=== PATIENT | female | born 1955 | race Caucasian/White ===

== ENCOUNTER → 2016-10-14 | Outpatient (CLI) | payer BC ==
--- NOTE | 2016-10-14 14:50 | US ---
EXAMINATION TYPE: US pelvis complete transvag DATE OF EXAM: 10/14/2016 2:41 PM COMPARISON: NONE CLINICAL HISTORY: Post Menopausal Bleeding N95.0. TECHNIQUE: Transabdominal pelvic ultrasound. Date of LMP: N/A EXAM MEASUREMENTS: Uterus: 5.4 x 2.4 x 4.0 cm Endometrial Stripe: 0.2 cm Right Ovary: not identified Left Ovary: not identified 1. Uterus: Anteverted wnl 2. Endometrium: has fluid within but does not appear athickened 3. Right Ovary: not identified 4. Left Ovary: not identified. 5. Bilateral Adnexa: wnl 6. Posterior cul-de-sac: wnl patient has personal history of anal cancer. IMPRESSION: Nonspecific endometrial fluid with thickening.
== END | disposition home or self-care (01) ==
LOC: RADUSWWP 14:10
PROVIDERS: ATTEND Obstetrics & Gynecology
DX: R93.8 Abnormal findings on diagnostic imaging of other specified body structures (principal); N95.0 Postmenopausal bleeding
CPT/HCPCS: 76830; 76856

== ENCOUNTER → 2017-03-18 | Outpatient (CLI) | payer BC ==
--- NOTE | 2017-03-18 15:57 | BD ---
EXAMINATION TYPE: MG DEXA axial skeleton. DATE OF EXAM: 03/18/2017 COMPARISON: NONE CLINICAL HISTORY: disorder of bone Height: 5'5 Weight: 154 FRAX RISK QUESTIONS: Alcohol (3 or more units per day): no Family History (Parent hip fracture): no Glucocorticoids (More than 3mos): no (Ex: prednisone, prednisolone, methylprednisolone, dexamethasone, and hydrocortisone). History of Fracture in Adulthood: no Secondary Osteoporosis: 1. Type 1 Diabetes: no 2. Hyperthyroidism: no 3. Menopause before 45: no 4. Malnutrition: no 5. Chronic liver disease: no Rheumatoid Arthritis: no Current Tobacco Use: no RISK FACTORS HISTORY OF: Diet low in dairy products/other sources of calcium: Postmenopausal woman: MEDICATIONS: Additional Medications: cholesterol Additional History: rectal cancer squamous cell age 57 EXAM MEASUREMENTS: Bone mineral densitometry was performed using the [employer] System. Bone mineral density as measured about the Lumbar spine is: ----- L1-L4(G/cm2): 1.019 T Score Values are as follows: ----- L2: -1.9 ----- L3: -1.0 ----- L4: -0.6 ----- L1-L4: -1.3 Bone mineral density about the R hip (g/cm2): 0.942 Bone mineral density about the L hip (g/cm2): 0.935 T Score values are as follows: -----R Neck: -0.7 -----L Neck: -0.7 -----R Total: -0.3 -----L Total: -0.5 IMPRESSION: Osteopenia (T Score between -2.5 and -1 as noted by T score values in the low back overall. There is slightly increased risk of fracture and the patient may be considered for treatment. Re-Screen 2-5 years. NOTE: T-SCORE=SD OF THE YOUNG ADULT MEAN.
--- NOTE | 2017-03-20 06:57 | MM ---
Reason for exam: screening (asymptomatic). Last mammogram was performed 1 year and 4 months ago. History: Patient is postmenopausal, has history of colon cancer at age 57, and history of other cancer. Physical Findings: A clinical breast exam by your physician is recommended on an annual basis and results should be correlated with mammographic findings. MG 3D Screening Mammo W/Cad Bilateral CC and MLO view(s) were taken. Prior study comparison: November 28, 2015, bilateral MG 3d screening mammo w/cad. June 10, 2014, mammogram, performed at [facility]. The breast tissue is heterogeneously dense. This may lower the sensitivity of mammography. Left chest wall injection port. No significant changes when compared with prior studies. ASSESSMENT: Negative, BI-RAD 1 RECOMMENDATION: Routine screening mammogram of both breasts in 1 year.
== END | disposition home or self-care (01) ==
LOC: RADMAMWWP 12:55
PROVIDERS: ATTEND Obstetrics & Gynecology
DX: Z12.31 Encounter for screening mammogram for malignant neoplasm of breast (principal); M85.80 Other specified disorders of bone density and structure, unspecified site
CPT/HCPCS: 77080; 77063; G0202

== ENCOUNTER → 2017-09-08 | Outpatient (CLI) | payer BC ==
--- NOTE | 2017-09-08 11:14 | ECHOS ---
STRESS ECHOCARDIOGRAM DATE OF SERVICE: 09/08/2017 INDICATIONS: Family history. MEDICATIONS: BASELINE HEART RATE: 72 BASELINE BLOOD PRESSURE: 121/73 MAXIMUM HEART RATE: 152 MAXIMUM BLOOD PRESSURE: 155/59 85% MPHR: 133 100% MPHR: 157 METS: MAXIMUM STAGE REACHED: II TOTAL EXERCISE TIME: 7 minutes and 48 seconds. CLINICAL INFORMATION: Baseline EKG revealed normal sinus rhythm without significant ST-T changes. Patient walked for 7 minute 48 seconds, achieved a maximal heart rate of 152 beats per minute developed fatigue and shortness of breath, but did not have angina or arrhythmia. EKG did not reveal any ST-segment changes to indicate ischemia. By EKG criteria, this is a negative stress test with fair exercise capacity. Baseline echo images revealed normal wall motion and wall thickening of all segments. At peak exercise, there was good augmentation of left ventricular wall motion and wall thickening of all segments suggesting that there is no evidence of stress-induced ischemia on this stress echocardiogram. FINAL IMPRESSION: 1. Fair exercise capacity with a negative stress test by EKG criteria. 2. Normal stress echocardiogram. MMODL / IJN: [id number] /
== END | disposition home or self-care (01) ==
LOC: RADNMMAIN 08:53
PROVIDERS: ATTEND Family Medicine
DX: R00.2 Palpitations (principal)
CPT/HCPCS: 93017; 93350

== ENCOUNTER → 2018-04-22 | Outpatient (CLI) | payer BC ==
--- NOTE | 2018-04-23 15:04 | MM ---
Reason for exam: screening (asymptomatic). Last mammogram was performed 1 year and 1 month ago. History: Patient is postmenopausal, has history of colon cancer at age 57, and history of other cancer. Physical Findings: A clinical breast exam by your physician is recommended on an annual basis and results should be correlated with mammographic findings. MG 3D Screening Mammo W/Cad Bilateral CC and MLO view(s) were taken. Prior study comparison: March 18, 2017, bilateral MG 3d screening mammo w/cad. November 28, 2015, bilateral MG 3d screening mammo w/cad. The breast tissue is heterogeneously dense. This may lower the sensitivity of mammography. Port over left breast. No significant changes when compared with prior studies. ASSESSMENT: Benign, BI-RAD 2 RECOMMENDATION: Routine screening mammogram of both breasts in 1 year.
== END | disposition home or self-care (01) ==
LOC: RADMAMWWP 08:34
PROVIDERS: ATTEND Obstetrics & Gynecology
DX: Z12.31 Encounter for screening mammogram for malignant neoplasm of breast (principal)
CPT/HCPCS: 77063; 77067

== ENCOUNTER 2018-05-06 06:19 | Day surgery (SDC) | payer BC ==
[2018-05-05 11:53] VITALS: BMI 24.6
--- NOTE | 2018-05-05 17:46 | P.HPOB ---
History of Present Illness H&P Date: 05/05/18 Chief Complaint: Postmenopausal bleeding, endometrial thickening This is a 63-year-old female 3 para 3 who presents for dilation and curettage with hysteroscopy secondary to postmenopausal bleeding and endometrial thickening on ultrasound. Her bleeding started all of a sudden about 3 days ago with a large gush of blood. She has been bleeding fairly heavy since that time. It has slowed a little bit today. She did go to the emergency room and had a pelvic ultrasound performed that showed a uterus measuring 8.4 x 5.7 x 3.9 cm with an endometrial thickness of 2 cm. Her right ovary appeared normal and her left ovary was not well visualized. She did have a previous ultrasound in early 2016 that showed an endometrial stripe thickness of 0.2 cm. She has noticed some cramping over the last month but felt menstrual -like but was not having any bleeding until recently. Obstetrical history: . History of 3 vaginal deliveries. Gynecologic history: No history of sexual transmitted diseases. Menopause was at about age 47. She has been using occasional estrogen cream for vaginal dryness. Social history: She is . 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 Review of Systems Constitutional: Denies chills, Denies fever Eyes: denies blurred vision, denies pain Ears, nose, mouth and throat: Denies headache, Denies sore throat Cardiovascular: Denies chest pain, Denies shortness of breath Respiratory: Denies cough Gastrointestinal: Denies abdominal pain, Denies nausea, Denies vomiting Genitourinary: Reports abnormal vaginal bleeding, Reports pelvic pain Musculoskeletal: Denies myalgias Integumentary: Denies pruritus, Denies rash Neurological: Denies numbness, Denies weakness Psychiatric: Denies anxiety, Denies depression Past Medical History Past Medical History: Cancer, Hyperlipidemia Additional Past Medical History / Comment(s): IBS, HX ANAL CANCER, PEG TUBE REMAINS IN PLACE. Hx basal cell cancer on nose. History of Any Multi-Drug Resistant Organisms: None Reported Past Surgical History: Cholecystectomy Additional Past Surgical History / Comment(s): COLONOSCOPY, ANAL TUMOR REMOVED, PEG TUBE October 2009. Past Anesthesia/Blood Transfusion Reactions: No Reported Reaction Past Psychological History: No Psychological Hx Reported Smoking Status: Former smoker Past Alcohol Use History: Daily Additional Past Alcohol Use History / Comment(s): QUIT SMOKING IN HER EARLY 19' S. 1-2 GLASSES WINE DAILY. Past Drug Use History: None Reported - Past Family History Brother(s) Family Medical History: Cancer Medications and Allergies Home Medications Medication Instructions Recorded Confirmed Type Atorvastatin Calcium [Lipitor] 40 mg PO HS 05/20/17 05/05/18 History Cholecalciferol [Vitamin D3] 10,000 unit PO HS 05/04/18 05/05/18 History L.acidoph,Paracasei, B.lactis 1 cap PO DAILY 05/04/18 05/05/18 History [Probiotic] Loperamide HCl [Imodium A-D] 8 mg PO QAM 05/04/18 05/05/18 History Ubidecarenone [Co Q-10] 200 mg PO HS 05/04/18 05/05/18 History Cholestyramine (with Sugar) 2 gm PO QAM 05/05/18 05/05/18 History [Cholestyramine Packet] Cranberry/Vitamin C 8,400 mg PO DAILY 05/05/18 05/05/18 History Cyanocobalamin (Vitamin B-12) 5,000 mcg PO HS 05/05/18 05/05/18 History [Vitamin B-12] Allergies Allergy/AdvReac Type Severity Reaction Status Date / Time azithromycin Allergy Rash/Hives Verified 05/05/18 11:34 [From Zithromax Z-Karlos] sulfamethoxazole Allergy Rash/Hives Verified 05/05/18 11:34 [From Bactrim] trimethoprim [From Bactrim] Allergy Rash/Hives Verified 05/05/18 11:34 Exam Osteopathic Statement: *. No significant issues noted on an osteopathic structural exam other than those noted in the History and Physical/Consult. Intake and Output 05/05/18 05/05/18 05/05/18 06:59 14:59 22:59 Other: Weight 67.132 kg HEENT: Within normal limits Heart: Regular rate and rhythm Lungs: Clear to auscultation bilaterally Abdomen: Soft, nontender Pelvic exam: Vaginal mucosa is atrophic. Cervix is parous but very stenotic and obliterated from radiation with no clearly visible opening. Uterus is mid position mildly tender, with no adnexal masses or tenderness noted. Extremities: Negative Homans Assessment and Plan (1) Endometrial thickening on ultrasound Status: Acute Code(s): R93.89 - ABNORMAL FINDINGS ON DX IMAGING OF OTH BODY STRUCTURES SNOMED Code(s): 255712131 (2) Post-menopausal bleeding Status: Acute Code(s): N95.0 - POSTMENOPAUSAL BLEEDING SNOMED Code(s): 18942531 Plan: Proceed with dilation and curettage with hysteroscopy. I have discussed the risks, benefits, and alternative therapies for the above- mentioned procedure and for both sedation/anesthesia as well as necessary blood products administration, if indicated, as they pertain to this patient. The patient has indicated her understanding and acceptance of the risks and procedures discussed.
[~2018-05-06 06:19] MED LIST: DEXAMETHASONE SOD PHOSPHATE 10 MG/ML 1 ML VIAL IV ONE; HYDROmorphone 1 MG/ML 1 ML SYRINGE IVP PRN; LACTATED RINGERS 1,000 ML IV SCH; LIDOCAINE 1% 20 ML VIAL (10MG/ML) FOR IV START INTRADERMA PRN; MIDAZOLAM 2 MG/2 ML VIAL IV PRN; ONDANSETRON 4 MG/2 ML VIAL IVP ONE; Pre Op ABX Message 1 EACH MISC MISCELLANE ONE; fentaNYL (PF) 50 MCG/ML 2 ML AMP IV PRN
[2018-05-06] MEDS ORDERED: LIDOCAINE 1% INJ 10MG/ML (20 ML MDV) ONE (07:27)
[2018-05-06] MEDS ORDERED: KETOROLAC 30 MG/ML 1 ML VIAL ONE (07:27)
[2018-05-06] MEDS ORDERED: MIDAZOLAM 2 MG/2 ML VIAL ONE (07:27)
[2018-05-06] MEDS ORDERED: fentaNYL (PF) 50 MCG/ML 2 ML AMP ONE (07:27)
[2018-05-06] MEDS ORDERED: PROPOFOL 10 MG/ML 20 ML VIAL IV ONE (07:27)
--- NOTE | 2018-05-06 08:00 | P.OP ---
Date of Procedure: 05/06/18 Preoperative Diagnosis: Postmenopausal bleeding Endometrial thickening Postoperative Diagnosis: Same Procedure(s) Performed: Dilation and curettage with hysteroscopy Anesthesia: other (LMA general) Surgeon: Jennifer Ny Estimated Blood Loss (ml): 25 Pathology: other (Endometrial curettings) Condition: stable Disposition: same day Indications for Procedure: This is a 63-year-old female 3 para 3 who presents for dilation and curettage with hysteroscopy secondary to postmenopausal bleeding and endometrial thickening on ultrasound. Her bleeding started all of a sudden about 3 days ago with a large gush of blood. She has been bleeding fairly heavy since that time. It has slowed a little bit today. She did go to the emergency room and had a pelvic ultrasound performed that showed a uterus measuring 8.4 x 5.7 x 3.9 cm with an endometrial thickness of 2 cm. Her right ovary appeared normal and her left ovary was not well visualized. She did have a previous ultrasound in early 2017 that showed an endometrial stripe thickness of 0.2 cm. She has noticed some cramping over the last month but felt menstrual -like but was not having any bleeding until recently. Operative Findings: Uterus is retroverted and sounded to 7 cm. Cervical os is necrotic appearing and slightly adherent to the posterior vaginal wall. Dark red blood is noted to be extruding through the cervical os. A fairly large amount of necrotic appearing tissue is obtained. Description of Procedure: The patient is taken to the operating room where she is placed in the dorsal lithotomy position. She is prepped and draped in the normal sterile fashion. Bladder is drained with a catheter. Pelvic exam is performed under anesthesia. Uterus was sounded be retroverted with no adnexal masses palpated. Next a weighted speculum was placed in the patient's vagina and a [place] is used to retract the anterior wall. Next the cervical os is visualized and noted to be slightly necrotic with some dark red blood extruding. The cervix was so scarred that I could not grab the anterior lip with a single-tooth tenaculum because it would just light off. I was able to grab the posterior lip of the cervix. The uterus is sounded to 7 cm. Cervix is gently dilated with Au dilators until a hysteroscope could be passed. Hysteroscopy was performed with normal saline. Difficult visualization was noted due to the bleeding. A large amount of dyssynchronous appearing tissue was noted. Neither tubal ostia was completely visualized. Hysteroscope was removed and the cervix was gently dilated further. A medium-size sharp curet was introduced and sharp curettage was performed with a moderate to large amount of necrotic appearing tissue. The single-tooth tenaculum was then removed and the specimen is removed. Minimal bleeding was noted. A rectal exam was also performed just to make sure there was no perforation towards the rectal area and no blood was noted on the glove. All instruments are removed from the vagina. All sponge and needle counts are correct. The patient is then taken to recovery room.
[2018-05-06 08:16] VITALS: TEMP 97
[2018-05-06 08:18] VITALS: RESP 16
[2018-05-06 09:12] VITALS: BP 132/75; PULSE 70
== END 2018-05-06 09:47 | disposition home or self-care (01) ==
LOC: OR 06:19
PROVIDERS: ATTEND Obstetrics & Gynecology
DX: C54.1 Malignant neoplasm of endometrium (principal); E78.5 Hyperlipidemia, unspecified; Z85.048 Personal history of other malignant neoplasm of rectum, rectosigmoid junction, and anus; Z85.22 Personal history of malignant neoplasm of nasal cavities, middle ear, and accessory sinuses; Z87.891 Personal history of nicotine dependence; Z79.899 Other long term (current) drug therapy; Z88.1 Allergy status to other antibiotic agents; Z88.2 Allergy status to sulfonamides
CPT/HCPCS: 58558; 88305; 88342; 88341; J2250; J1100; J2405; J2001; J3010; J1885; J2704

== ENCOUNTER → 2018-06-01 | Outpatient (CLI) | payer BC ==
--- NOTE | 2018-06-02 09:58 | CT ---
EXAMINATION TYPE: CT abdomen pelvis wo/w con DATE OF EXAM: 06/01/2018 HISTORY: pre-surgical. pt states she is having hysterectomy for uterine ca. CT DLP: 835mGycm Automated Exposure Control for Dose Reduction was Utilized. CONTRAST: CT scan of the abdomen and pelvis is performed with IV Contrast, patient injected with 100 mL of Isov ue 300. COMPARISON: Pelvic ultrasound dated 05/04/[address] dated 10/29/2011 FINDINGS: LUNG BASES: Right middle lobe linear atelectasis is present. LIVER/GB: No focal hepatic lesion is seen. The portal system appears engorged. Gallbladder surgically absent. PANCREAS: No significant abnormality is seen. SPLEEN: No significant abnormality is seen. ADRENALS: No significant abnormality is seen. KIDNEYS: Kidneys enhance and excrete symmetrically. Incidental mode is made of a right extrarenal pel vis. BOWEL: Diffuse sigmoid colonic wall thickening may relate to incomplete distention or chronic colitis is no pericolonic inflammatory fat stranding changes are seen. UTERUS/ADNEXA: Uterus is diffusely heterogenous with endometrial thickening. Fluid is seen within the cervical canal. Overall there is pelvic floor relaxation. LYMPH NODES: No greater than 1cm abdominal or pelvic lymph nodes are appreciated. OSSEOUS STRUCTURES: There is mild retrolisthesis of L3 on L4. No suspicious osseous lesion is seen. OTHER: Subcentimeter fat filled umbilical hernia is present IMPRESSION: 1. No evidence of intra-abdominal or pelvic solid visceral metastasis or adenopathy. 2. Endometrial thickening with heterogeneity of the uterus and fluid-filled cervical os. 3. Diffuse sigmoid colonic wall thickening may relate to chronic colitis. No current inflammatory collin nges seen.
--- NOTE | 2018-06-02 11:47 | XR ---
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 FINDINGS: There is no focal air space opacity, pleural effusion, or pneumothorax. Port-A-Cath is pr esent in the left pectoral region, distal tip of the catheter is overlying superior vena cava. Biapic al pleural thickening is stable. Surgical clips in the upper abdomen. The cardiac silhouette size is within normal limits. The osseous structures are intact. Aorta is dense. IMPRESSION: No acute cardiopulmonary process.
== END | disposition home or self-care (01) ==
LOC: RADCTMAIN 15:47
PROVIDERS: ATTEND Obstetrics & Gynecology
DX: C54.1 Malignant neoplasm of endometrium (principal); R93.89 Abnormal findings on diagnostic imaging of other specified body structures; K63.89 Other specified diseases of intestine
CPT/HCPCS: 71046; 74178; Q9967

== ENCOUNTER 2018-06-24 17:09 | Emergency (ER) | payer BC ==
[2018-06-24 17:28] VITALS: RESP 16
[2018-06-24] MEDS ORDERED: SODIUM CHLORIDE 0.9% 1,000 ML IV STA (17:38)
[2018-06-24] MEDS ORDERED: IBUPROFEN 600 MG TAB PO STA (17:38)
[2018-06-24] MEDS ORDERED: SODIUM CHLORIDE 0.9% 500 ML 500 ML IV STA (17:38)
[2018-06-24] MEDS ORDERED: ACETAMINOPHEN TAB 500 MG TAB PO STA (17:38)
--- NOTE | 2018-06-24 17:38 | ED ---
Fever HPI - General Chief Complaint: Fever Stated Complaint: Flu Time Seen by Provider: 06/24/18 17:35 Source: patient, RN notes reviewed, old records reviewed Mode of arrival: ambulatory Limitations: no limitations - History of Present Illness Initial Comments: This is a 63-year-old female the ER for evaluation of fever not feeling well. Symptoms 2 days. Patient has no significant recent sick contacts. Was recently diagnosed urinary tract infection. Called they told she had abnormal lab values an outpatient lab visit. Patient currently is without pain. Denies significant abdominal pain. Medical history is significant for recent robotic hysterectomy and does not have significant pain there and her surgeons have been cleaned. Patient does have history of uterine CA. Patient denies cough or congestion no rash. No nausea vomiting or diarrhea MD Complaint: fever, weakness -: days(s) (2) Temperature Source: subjective, other (Patient has been feeling temperature for 2 days but not feeling well 7 days, surgery 2 weeks ago, recent treatment for UTI) Context: sick contacts, recent procedure (Hysterectomy) Associated Symptoms: chills Treatments Prior to Arrival: none - Related Data Home Medications Medication Instructions Recorded Confirmed Atorvastatin Calcium [Lipitor] 40 mg PO HS 05/20/17 06/24/18 Cholecalciferol [Vitamin D3] 10,000 unit PO HS 05/04/18 06/24/18 L.acidoph,Paracasei, B.lactis 1 cap PO DAILY 05/04/18 06/24/18 [Probiotic] Loperamide HCl [Imodium A-D] 8 mg PO QAM 05/04/18 06/24/18 Ubidecarenone [Co Q-10] 200 mg PO HS 05/04/18 06/24/18 Cholestyramine (with Sugar) 2 gm PO QAM 05/05/18 06/24/18 [Cholestyramine Packet] Cranberry/Vitamin C 8,400 mg PO DAILY 05/05/18 06/24/18 Cyanocobalamin (Vitamin B-12) 5,000 mcg PO HS 05/05/18 06/24/18 [Vitamin B-12] HYDROcodone/APAP 7.5-325MG [[place] 1 tab PO BID PRN 06/24/18 06/24/18 7.5-325] Ibuprofen [Motrin] 800 mg PO BID 06/24/18 06/24/18 Allergies Allergy/AdvReac Type Severity Reaction Status Date / Time azithromycin Allergy Rash/Hives Verified 06/24/18 18:00 [From Zithromax Z-Karlos] nitrofurantoin AdvReac Nausea & Verified 06/24/18 18:00 Vomiting sulfamethoxazole AdvReac Nausea & Verified 06/24/18 18:00 [From Bactrim] Vomiting trimethoprim [From Bactrim] AdvReac Nausea & Verified 06/24/18 18:00 Vomiting Review of Systems ROS Statement: Those systems with pertinent positive or pertinent negative responses have been documented in the HPI. ROS Other: All systems not noted in ROS Statement are negative. Past Medical History Past Medical History: Cancer, Hyperlipidemia Additional Past Medical History / Comment(s): IBS, HX ANAL CANCER, PEG TUBE REMAINS IN PLACE. Hx basal cell cancer on nose. History of Any Multi-Drug Resistant Organisms: None Reported Past Surgical History: Cholecystectomy Additional Past Surgical History / Comment(s): COLONOSCOPY, ANAL TUMOR REMOVED, PEG TUBE October 2009. Past Anesthesia/Blood Transfusion Reactions: No Reported Reaction Past Psychological History: No Psychological Hx Reported Smoking Status: Former smoker Past Alcohol Use History: Daily Past Drug Use History: None Reported - Past Family History Brother(s) Family Medical History: Cancer General Exam - General Exam Comments Initial Comments: Incisions are clean dry and intact Limitations: no limitations General appearance: alert, in no apparent distress Head exam: Present: atraumatic, normocephalic, normal inspection Eye exam: Present: normal appearance, PERRL, EOMI. Absent: scleral icterus, conjunctival injection, periorbital swelling ENT exam: Present: normal exam, mucous membranes moist Neck exam: Present: normal inspection. Absent: tenderness, meningismus, lymphadenopathy Respiratory exam: Present: normal lung sounds bilaterally. Absent: respiratory distress, wheezes, rales, rhonchi, stridor Cardiovascular Exam: Present: regular rate, normal rhythm, normal heart sounds. Absent: systolic murmur, diastolic murmur, rubs, gallop, clicks GI/Abdominal exam: Present: soft, normal bowel sounds. Absent: distended, tenderness, guarding, rebound, rigid Extremities exam: Present: normal inspection, full ROM, normal capillary refill. Absent: tenderness, pedal edema, joint swelling, calf tenderness Back exam: Present: normal inspection Neurological exam: Present: alert, oriented X3, CN II-XII intact Psychiatric exam: Present: normal affect, normal mood Skin exam: Present: warm, dry, intact, normal color. Absent: rash Course Vital Signs 06/24/18 06/24/18 06/24/18 17:26 20:42 22:25 Temperature 102.9 F H 98.4 F 98.1 F Pulse Rate 100 92 Respiratory 16 16 Rate Blood Pressure 117/73 134/74 O2 Sat by Pulse 100 99 Oximetry - Reevaluation(s) Reevaluation #1: 06/24/18 19:06 Medical record is reviewed Reevaluation #2: 06/24/18 19:06 Patient does feel better with symptom control Medical Decision Making - Medical Decision Making 63 female the ER for evaluation of fever. 2 weeks postoperative for hysterectomy, CT head and pelvis as well as further workup was otherwise negative. Patient can be discharged home - Lab Data Result diagrams: 06/24/18 18:14 06/24/18 18:14 Lab Results 06/24/18 06/24/18 06/24/18 Range/Units 18:14 18:14 18:14 WBC 17.2 H (3.8-10.6) k/uL RBC 3.44 L (3.80-5.40) m/uL Hgb 11.1 L (11.4-16.0) gm/dL Hct 34.1 (34.0-46.0) % MCV 99.0 (80.0-100.0) fL MCH 32.3 (25.0-35.0) pg MCHC 32.6 (31.0-37.0) g/dL RDW 12.1 (11.5-15.5) % Plt Count 424 (150-450) k/uL Neutrophils % 88 % Lymphocytes % 5 % Monocytes % 4 % Eosinophils % 1 % Basophils % 0 % Neutrophils # 15.1 H (1.3-7.7) k/uL Lymphocytes # 0.9 L (1.0-4.8) k/uL Monocytes # 0.6 (0-1.0) k/uL Eosinophils # 0.2 (0-0.7) k/uL Basophils # 0.1 (0-0.2) k/uL Sodium 133 L (137-145) mmol/L Potassium 4.6 (3.5-5.1) mmol/L Chloride 99 (98-107) mmol/L Carbon Dioxide 24 (22-30) mmol/L Anion Gap 10 mmol/L BUN 10 (7-17) mg/dL Creatinine 0.52 (0.52-1.04) mg/dL Est GFR (CKD-EPI)AfAm >90 (>60 ml/min/1.73 sqM) Est GFR (CKD-EPI)NonAf >90 (>60 ml/min/1.73 sqM) Glucose 103 H (74-99) mg/dL Plasma Lactic Acid [place] 1.1 (0.7-2.0) mmol/L Calcium 9.0 (8.4-10.2) mg/dL Total Bilirubin 0.9 (0.2-1.3) mg/dL AST 44 H (14-36) U/L ALT 61 H (9-52) U/L Alkaline Phosphatase 115 (38-126) U/L Total Protein 6.7 (6.3-8.2) g/dL Albumin 3.7 (3.5-5.0) g/dL Urine Color Urine Appearance (Clear) Urine pH (5.0-8.0) Ur Specific [place] (1.001-1.035) Urine Protein (Negative) Urine Glucose (UA) (Negative) Urine Ketones (Negative) Urine Blood (Negative) Urine Nitrite (Negative) Urine Bilirubin (Negative) Urine Urobilinogen (<2.0) mg/dL Ur Leukocyte Esterase (Negative) Urine RBC (0-5) /hpf Urine WBC (0-5) /hpf Ur Squamous Epith Cells (0-4) /hpf Amorphous Sediment (None) /hpf Urine Mucus (None) /hpf Influenza Type A RNA (Not Detectd) Influenza Type B (PCR) (Not Detectd) 06/24/18 06/24/18 Range/Units 18:59 18:59 WBC (3.8-10.6) k/uL RBC (3.80-5.40) m/uL Hgb (11.4-16.0) gm/dL Hct (34.0-46.0) % MCV (80.0-100.0) fL MCH (25.0-35.0) pg MCHC (31.0-37.0) g/dL RDW (11.5-15.5) % Plt Count (150-450) k/uL Neutrophils % % Lymphocytes % % Monocytes % % Eosinophils % % Basophils % % Neutrophils # (1.3-7.7) k/uL Lymphocytes # (1.0-4.8) k/uL Monocytes # (0-1.0) k/uL Eosinophils # (0-0.7) k/uL Basophils # (0-0.2) k/uL Sodium (137-145) mmol/L Potassium (3.5-5.1) mmol/L Chloride (98-107) mmol/L Carbon Dioxide (22-30) mmol/L Anion Gap mmol/L BUN (7-17) mg/dL Creatinine (0.52-1.04) mg/dL Est GFR (CKD-EPI)AfAm (>60 ml/min/1.73 sqM) Est GFR (CKD-EPI)NonAf (>60 ml/min/1.73 sqM) Glucose (74-99) mg/dL Plasma Lactic Acid [place] (0.7-2.0) mmol/L Calcium (8.4-10.2) mg/dL Total Bilirubin (0.2-1.3) mg/dL AST (14-36) U/L ALT (9-52) U/L Alkaline Phosphatase (38-126) U/L Total Protein (6.3-8.2) g/dL Albumin (3.5-5.0) g/dL Urine Color Yellow Urine Appearance Clear (Clear) Urine pH 7.5 (5.0-8.0) Ur Specific [place] 1.012 (1.001-1.035) Urine Protein Trace H (Negative) Urine Glucose (UA) Negative (Negative) Urine Ketones Trace H (Negative) Urine Blood Negative (Negative) Urine Nitrite Negative (Negative) Urine Bilirubin Negative (Negative) Urine Urobilinogen <2.0 (<2.0) mg/dL Ur Leukocyte Esterase Trace H (Negative) Urine RBC 2 (0-5) /hpf Urine WBC 19 H (0-5) /hpf Ur Squamous Epith Cells <1 (0-4) /hpf Amorphous Sediment Rare H (None) /hpf Urine Mucus Rare H (None) /hpf Influenza Type A RNA Not Detected (Not Detectd) Influenza Type B (PCR) Not Detected (Not Detectd) - Radiology Data Radiology results: report reviewed (CT abdomen pelvis is negative for acute disease chest x-rays negative), image reviewed Disposition Clinical Impression: Fever Disposition: HOME SELF-CARE Condition: Good Instructions: Fever in Adults (ED) Is patient prescribed a controlled substance at d/c from ED?: No Referrals: Adam Miller MD [Primary Care Provider] - 1-2 days
[2018-06-24 18:39] LABS: ALT 61 U/L (9-52); AST 44 U/L (14-36); Albumin 3.7 g/dL (3.5-5.0); Alkaline Phosphatase 115 U/L (38-126); Anion Gap 10 mmol/L; Blood Urea Nitrogen 10 mg/dL (7-17); Carbon Dioxide 24 mmol/L (22-30); Chloride 99 mmol/L (98-107); Glucose 103 mg/dL (74-99); Potassium 4.6 mmol/L (3.5-5.1); Sodium 133 mmol/L (137-145); Total Bilirubin 0.9 mg/dL (0.2-1.3); Total Protein 6.7 g/dL (6.3-8.2)
[2018-06-24 18:41] LABS: Basophils # (A) 0.1 k/uL (0-0.2); Basophils % (A) 0 %; Eosinophils # (A) 0.2 k/uL (0-0.7); Eosinophils % (A) 1 %; HCT 34.1 % (34.0-46.0); HGB 11.1 gm/dL (11.4-16.0); Lymphocytes # (A) 0.9 k/uL (1.0-4.8); Lymphocytes % (A) 5 %; MCH 32.3 pg (25.0-35.0); MCHC 32.6 g/dL (31.0-37.0); Mean Platelet Volume 6.6; Monocytes # (A) 0.6 k/uL (0-1.0); Monocytes % (A) 4 %; Neutrophils # (A) 15.1 k/uL (1.3-7.7); Neutrophils % (A) 88 %; Platelet Count 424 k/uL (150-450); RBC 3.44 m/uL (3.80-5.40); RDW 12.1 % (11.5-15.5); WBC 17.2 k/uL (3.8-10.6)
[2018-06-24 19:19] LABS: Amorphous Sediment,Urine Rare /hpf; Appearance,Urine Clear (Clear); Bilirubin,Urine Negative (Negative); Blood,Urine Negative (Negative); Color,Urine Yellow; Glucose,Urine (UA) Negative (Negative); Ketones,Urine Trace (Negative); Leukocyte Esterase,Urine Trace (Negative); Mucus,Urine Rare /hpf; Nitrite,Urine Negative (Negative); PH, Urine 7.5 (5.0-8.0); Protein,Urine Trace (Negative); RBC,Urine 2 /hpf (0-5); Specific Gravity,Urine 1.012 (1.001-1.035); Squamous Epithelial Cell,Urine <1 /hpf (0-4); Urobilinogen,Urine <2.0 mg/dL (<2.0); WBC,Urine 19 /hpf (0-5)
--- NOTE | 2018-06-24 19:56 | XR ---
EXAMINATION TYPE: XR chest 2V DATE OF EXAM: 06/24/2018 COMPARISON: 06/01/2018 HISTORY: Fever TECHNIQUE: Frontal and lateral views of the chest are obtained. FINDINGS: Heart and mediastinum are normal. Lungs are clear of consolidation. There is left central venous catheter with the tip in the right ventricle. There is no pleural effusion. There is no heart failure IMPRESSION: No active cardiopulmonary disease. Normal heart. No change.
--- NOTE | 2018-06-24 21:57 | CT ---
EXAMINATION TYPE: CT abdomen pelvis w con DATE OF EXAM: 06/24/2018 COMPARISON: 06/01/2018 HISTORY: CT DLP: mGycm Automated exposure control for dose reduction was used. TECHNIQUE: Helical acquisition of images was performed from the lung bases through the pelvis. CONTRAST: Isovue 100 mL. FINDINGS: Lung bases are clear. There is no pleural effusion. There are small hiatal hernia. Liver and spleen appear normal. Bile ducts are not dilated. There are clips from cholecystectomy. The re is no pancreatic mass. There is no adrenal mass. The kidneys show satisfactory contrast opacification. There is no hydroneph rosis. There is no retroperitoneal adenopathy. Abdominal aorta shows mild atheromatous change. The ur eters are not dilated.There is some fat stranding in the pelvis. There is no inguinal hernia. There i s presacral fluid. There is hysterectomy noted. Bladder is almost empty. I see no intestinal wall thickening. There are no dilated loops. There is umbilical hernia that conta ins fat. There is no mesenteric edema. IMPRESSION: THERE IS FAT STRANDING AND FLUID IN THE PELVIS AND PRESACRAL EDEMA. THIS IS A CHANGE COMPARED TO THE PREOPERATIVE EXAM OF 06/01/2018. NO DRAINABLE FLUID COLLECTION. THIS COULD RELATE TO POSTOPERATIVE IN FLAMMATORY PROCESS. NO EVIDENCE OF A BOWEL OBSTRUCTION. NO RENAL OBSTRUCTION.
[2018-06-24 22:26] VITALS: BP 134/74; PULSE 92; TEMP 98.1
== END 2018-06-24 23:07 | disposition home or self-care (01) ==
LOC: EC 17:09
DX: R50.9 Fever, unspecified (principal); R53.1 Weakness; E78.5 Hyperlipidemia, unspecified; Z79.899 Other long term (current) drug therapy; Z88.1 Allergy status to other antibiotic agents; Z88.2 Allergy status to sulfonamides; Z85.828 Personal history of other malignant neoplasm of skin; Z85.048 Personal history of other malignant neoplasm of rectum, rectosigmoid junction, and anus; Z90.710 Acquired absence of both cervix and uterus; Z87.891 Personal history of nicotine dependence
CPT/HCPCS: 36415; 80053; 83605; 85025; 81001; 87040; 87086; 87502; 71046; 74177; 99284; 96360; Q9967

== ENCOUNTER → 2019-02-17 | Outpatient (CLI) | payer BC ==
--- NOTE | 2019-02-17 12:04 | CT ---
EXAMINATION TYPE: CT abdomen pelvis w con DATE OF EXAM: 02/17/2019 HISTORY: Uterine cancer CT DLP: 457.7mGycm Automated Exposure Control for Dose Reduction was Utilized. CONTRAST: CT scan of the abdomen and pelvis is performed with IV Contrast, patient injected with 100 mL of Isov ue 300. COMPARISON: CT abdomen and pelvis June 24, 2018 and older studies. FINDINGS: LUNG BASES: No significant abnormality is appreciated. LIVER/GB: Cholecystectomy clips are redemonstrated. PANCREAS: No significant abnormality is seen. SPLEEN: No significant abnormality is seen. ADRENALS: No significant abnormality is seen. KIDNEYS: No significant abnormality is seen. BOWEL: Oral contrast reaches the level of the splenic flexure. There is no suspicious small or large bowel dilatation. UTERUS/ADNEXA: Uterus is surgically absent. Interval resolution of ill-defined fluid and fat strandin g in the pelvis noted. LYMPH NODES: No greater than 1cm abdominal or pelvic lymph nodes are appreciated. OSSEOUS STRUCTURES: Mild facet arthropathy lower lumbar levels. OTHER: Mild calcified plaque of the aorta extends into branch vessels. IMPRESSION: No suspicious new mass or adenopathy identified to suggest recurrent malignancy.
== END | disposition home or self-care (01) ==
LOC: RADCTMAIN 09:04
PROVIDERS: ATTEND Internal Medicine Hematology & Oncology
DX: C54.9 Malignant neoplasm of corpus uteri, unspecified (principal); Z88.1 Allergy status to other antibiotic agents
CPT/HCPCS: 74177; Q9967

== ENCOUNTER → 2019-04-25 | Outpatient (CLI) | payer BC ==
--- NOTE | 2019-04-26 10:07 | MM ---
Reason for exam: screening (asymptomatic). Last mammogram was performed 1 year ago. History: Patient is postmenopausal, has history of other cancer at age 63, and has history of colon cancer at age 57. Physical Findings: A clinical breast exam by your physician is recommended on an annual basis and results should be correlated with mammographic findings. MG 3D Screening Mammo W/Cad Bilateral CC and MLO view(s) were taken. Prior study comparison: April 22, 2018, bilateral MG 3d screening mammo w/cad. March 18, 2017, bilateral MG 3d screening mammo w/cad. The breast tissue is heterogeneously dense. This may lower the sensitivity of mammography. There are benign appearing round calcifications bilaterally. There is no discrete abnormality. Left axillary mediport partially imaged. ASSESSMENT: Benign, BI-RAD 2 RECOMMENDATION: Routine screening mammogram of both breasts in 1 year.
== END | disposition home or self-care (01) ==
LOC: RADMAMWWP 16:05
PROVIDERS: ATTEND Obstetrics & Gynecology
DX: Z12.31 Encounter for screening mammogram for malignant neoplasm of breast (principal)
CPT/HCPCS: 77063; 77067

== ENCOUNTER → 2020-02-09 | Outpatient (CLI) | payer BC ==
--- NOTE | 2020-02-14 06:57 | BMR ---
EXAMINATION TYPE: MR breast BILAT wo/w con DATE OF EXAM: 02/09/2020 COMPARISON: 3-D bilateral breast mammogram April 25, 2019 BI-RADS 2. HISTORY: Gene mutation, personal hx uterine/colon cancer CONTRAST: Multiplanar, multisequence images of the breasts were acquired utilizing 7 mL intravenous Gadavist ga dolinium contrast. TECHNIQUE: A series of fat and water weighted images in the long and short axis views of both breasts are obtained in conjunction with dynamic contrast MRI with subtraction technique. Three-dimensional and additional postprocessing imaging is created on independent workstation and reviewed during offi cial interpretation of this study. FINDINGS: Scattered fibroglandular tissue throughout both breasts is redemonstrated. T2 and STIR weig hted images show no significant cystic change in either breast. T1 nonfat saturation images show no s uspicious fat containing masses. No suspicious axillary adenopathy is noted bilaterally. Postcontrast imaging shows fairly moderate symmetric background enhancement. Delayed dynamic postcontrast imaging shows no suspicious intramammary adenopathy bilaterally. With regards to the right breast. No suspicious skin thickening is seen. The chest wall is intact. No pathologic enhancement or enhancing masses are noted. With regards to the left breast there is artifact distortion from Mediport catheter upper slightly me dial aspect. No suspicious skin thickening is seen. No suspicious enhancement or enhancing masses annamarie ntified. The chest wall is intact. IMPRESSION: No MRI evidence for invasive malignancy in either breast. BI-RADS 2 benign findings right breast BI-RADS 2 benign findings left breast Recommendation: Patient due for annual screening mammogram April 2020. Consider annual MRI surveil thee in high risk patient.
== END | disposition home or self-care (01) ==
LOC: RADMRIMAIN 14:49
PROVIDERS: ATTEND Internal Medicine Hematology & Oncology
DX: C54.9 Malignant neoplasm of corpus uteri, unspecified (principal); C21.0 Malignant neoplasm of anus, unspecified; Z15.09 Genetic susceptibility to other malignant neoplasm
CPT/HCPCS: 77049; C8937; A9585

== ENCOUNTER → 2020-02-20 | Outpatient (CLI) | payer BC ==
[2020-02-20 09:50] LABS: African American GFR (CKD) >90 (>60 ml/min/1.73 sqM); Blood Urea Nitrogen 11 mg/dL (7-17); Non-African American GFR(CKD) >90 (>60 ml/min/1.73 sqM)
--- NOTE | 2020-02-21 20:08 | CT ---
EXAMINATION TYPE: CT ChestAbdPelvis w con DATE OF EXAM: 02/20/2020 COMPARISON: CT abdomen pelvis 02/17/2019. HISTORY: follow up uterine cancer/anal cancer CT DLP: 530.2 mGycm Automated exposure control for dose reduction was used. CONTRAST: CT scan of the chest, abdomen and pelvis is performed with Oral Contrast and with IV Contrast, patien t injected with 100 mL of Isovue 300. FINDINGS: LUNGS: There is biapical pleural scarring and nodular thickening. Lungs are grossly clear. No pleural effusion. No pneumothorax. The tracheobronchial tree is patent. MEDIASTINUM/SOFT TISSUES: No axillary, hilar, or mediastinal lymphadenopathy greater than 1 cm. Cardi ac size is normal. No pericardial effusion. No thoracic aortic aneurysm. LIVER: Mildly fatty liver. No focal lesion. BILIARY SYSTEM: Status post cholecystectomy. No intrahepatic or extrahepatic biliary ductal dilatatio n. PANCREAS: Normal. SPLEEN: Normal. ADRENALS: Normal. KIDNEYS: Right extrarenal pelvis. No hydronephrosis or hydroureter. BOWEL: No evidence of bowel obstruction or thickening. PERITONEUM: No pneumoperitoneum. No free fluid. LYMPH NODES: No lymphadenopathy. PELVIS: Incompletely distended urinary bladder. Status post hysterectomy. VASCULATURE: No abdominal aortic aneurysm. MUSCULOSKELETAL: Sclerotic focus at the superior endplate of L5 is unchanged. No aggressive osseous destructive lesions. IMPRESSION: No evidence of recurrent or metastatic disease of the chest, abdomen, or pelvis.
== END | disposition home or self-care (01) ==
LOC: RADCTMAIN 09:14
PROVIDERS: ATTEND Internal Medicine Hematology & Oncology
DX: C54.9 Malignant neoplasm of corpus uteri, unspecified (principal); C21.0 Malignant neoplasm of anus, unspecified; Z88.1 Allergy status to other antibiotic agents
CPT/HCPCS: 82565; 84520; 71260; 74177; 36415; Q9967

== ENCOUNTER → 2020-05-21 | Outpatient (CLI) | payer BC ==
--- NOTE | 2020-05-22 13:41 | MM ---
Reason for exam: screening (asymptomatic). Last mammogram was performed 1 year and 1 month ago. History: Patient is postmenopausal, has history of other cancer at age 63, and has history of colon cancer at age 57. Physical Findings: A clinical breast exam by your physician is recommended on an annual basis and results should be correlated with mammographic findings. MG 3D Screening Mammo W/Cad Bilateral CC and MLO view(s) were taken. Prior study comparison: April 25, 2019, bilateral MG 3d screening mammo w/cad. April 22, 2018, bilateral MG 3d screening mammo w/cad. The breast tissue is heterogeneously dense. This may lower the sensitivity of mammography. There are benign appearing round calcifications bilaterally. There is no discrete abnormality. Left mediport catheter. ASSESSMENT: Benign, BI-RAD 2 RECOMMENDATION: Routine screening mammogram of both breasts in 1 year.
== END | disposition home or self-care (01) ==
LOC: RADMAMWWP 09:43
PROVIDERS: ATTEND Internal Medicine Hematology & Oncology
DX: Z12.31 Encounter for screening mammogram for malignant neoplasm of breast (principal)
CPT/HCPCS: 77063; 77067

== ENCOUNTER → 2021-02-26 | Outpatient (CLI) | payer MEDICARE ==
[2021-02-26 15:48] LABS: African American GFR (CKD) >90 (>60 ml/min/1.73 sqM); Blood Urea Nitrogen 10 mg/dL (7-17); Non-African American GFR(CKD) >90 (>60 ml/min/1.73 sqM)
--- NOTE | 2021-02-28 15:06 | CT ---
EXAMINATION TYPE: CT ChestAbdPelvis w con DATE OF EXAM: 02/26/2021 INDICATION: ca f/u COMPARISON: 02/20/2020 CT DLP: 602.3 mGycm CONTRAST: Performed with Oral Contrast and with IV Contrast, patient injected with 100 mL of Isovue 300. TECHNIQUE: Axial images at 5 mm thick sections. Reconstructed images in the coronal plane. Delayed images through the kidneys. FINDINGS: CT CHEST: Portion of the thyroid visualized is normal. There is a 0.7 cm nodular density posterior lateral right apex. This is adjacent to some scarring and may be chronic. This was present previously and appear stable. No enlarged mediastinal or hilar adenopathy is evident. The ascending aorta diameter at the level of the main pulmonary artery is 3.2 cm. The main pulmonary artery diameter at the bifurcation is 2.[address] ABDOMEN: Liver: Normal Spleen: Normal Pancreas: Normal Adrenal glands: The adrenal glands are normal. Gallbladder: Surgically absent Kidneys: No masses are evident. There may be some mild right hydronephrosis. No hydroureter is eviden t. This could be related to hydroureter No cysts are present. Delayed images were obtained through t he kidneys, which remain unremarkable. Aorta: Vascular calcification is within the aorta. Inferior vena cava: Normal. CT PELVIS: Loops of bowel within the abdomen and pelvis are normal. There are loops of bowel which are incom pletely distended or lack oral contrast limiting their evaluation. Appendix: Not identified. No dilated tubular structure inflammatory changes are evident. Urinary bladder: Normal. Genitourinary structures: Uterus and ovaries are not identified Osseous structures: No suspicious lytic or sclerotic lesions. There is a scoliosis of the lumbar spin e. Some lateral subluxation of L4 on L5 may be present. This is stable IMPRESSIONS: 1. No suspicious changes to suggest recurrent or metastatic uterine renal cancer.
== END | disposition home or self-care (01) ==
LOC: RADCTMAIN 15:14
PROVIDERS: ATTEND Internal Medicine Hematology & Oncology
DX: Z08 Encounter for follow-up examination after completed treatment for malignant neoplasm (principal); Z85.41 Personal history of malignant neoplasm of cervix uteri
CPT/HCPCS: 82565; 84520; 71260; 74177; 36415; Q9967

== ENCOUNTER 2021-04-04 12:20 | Emergency (ER) | payer MEDICARE ==
[2021-04-04 13:14] VITALS: TEMP 97.7
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
[2021-04-04] MEDS ORDERED: SODIUM CHLORIDE 0.9% 1,000 ML IV STA (13:18)
[2021-04-04 13:56] LABS: Basophils % (A) 1 %; Eosinophils # (A) 0.1 k/uL (0-0.7); Eosinophils % (A) 1 %; HCT 39.5 % (34.0-46.0); HGB 13.8 gm/dL (11.4-16.0); Lymphocytes # (A) 1.2 k/uL (1.0-4.8); Lymphocytes % (A) 16 %; MCH 34.5 pg (25.0-35.0); MCHC 35.1 g/dL (31.0-37.0); MCV 98.4 fL (80.0-100.0); Mean Platelet Volume 6.5; Monocytes # (A) 0.4 k/uL (0-1.0); Monocytes % (A) 6 %; Neutrophils # (A) 5.5 k/uL (1.3-7.7); Neutrophils % (A) 75 %; Platelet Count 283 k/uL (150-450); RBC 4.01 m/uL (3.80-5.40); WBC 7.3 k/uL (3.8-10.6)
[2021-04-04 14:05] LABS: Partial Thromboplastin Time 22.6 sec (22.0-30.0); Prothrombin Time 10.5 sec (9.0-12.0)
[2021-04-04 14:06] LABS: ALT 26 U/L (4-34); AST 29 U/L (14-36); African American GFR (CKD) >90 (>60 ml/min/1.73 sqM); Albumin 4.1 g/dL (3.5-5.0); Alkaline Phosphatase 102 U/L (38-126); Anion Gap 6 mmol/L; Blood Urea Nitrogen 10 mg/dL (7-17); Calcium 9.5 mg/dL (8.4-10.2); Carbon Dioxide 26 mmol/L (22-30); Chloride 104 mmol/L (98-107); Glucose 95 mg/dL (74-99); Non-African American GFR(CKD) >90 (>60 ml/min/1.73 sqM); Potassium 3.9 mmol/L (3.5-5.1); Sodium 136 mmol/L (137-145); Total Bilirubin 0.6 mg/dL (0.2-1.3); Total Protein 7.1 g/dL (6.3-8.2)
--- NOTE | 2021-04-04 14:30 | XR ---
EXAMINATION TYPE: XR chest 2V DATE OF EXAM: 04/04/2021 COMPARISON: Chest x-ray 06/24/2018 HISTORY: Syncope TECHNIQUE: Frontal and lateral views of the chest are obtained. FINDINGS: There is no focal air space opacity, pleural effusion, or pneumothorax seen. The cardiac silhouette size is within normal limits. There is a port in the left pectoral region, tip of the cat heter is present overlying the superior vena cava. Apical pleural thickening is again noted. There ar e overlying leads, artifact. The osseous structures are intact, bone mineralization is diffuse, air i s dense. IMPRESSION: No acute cardiopulmonary process.
[2021-04-04 14:59] VITALS: BP 135/77; PULSE 88; RESP 20
[2021-04-04 15:29] LABS: Appearance,Urine Clear (Clear); Bilirubin,Urine Negative (Negative); Blood,Urine Negative (Negative); Color,Urine Light Yellow; Glucose,Urine (UA) Negative (Negative); Ketones,Urine Negative (Negative); Leukocyte Esterase,Urine Negative (Negative); Nitrite,Urine Negative (Negative); Protein,Urine Negative (Negative); Specific Gravity,Urine 1.006 (1.001-1.035); Urobilinogen,Urine <2.0 mg/dL (<2.0)
== END 2021-04-04 15:23 | disposition home or self-care (01) ==
LOC: EC 12:20
DX: R55 Syncope and collapse (principal); E78.5 Hyperlipidemia, unspecified; Z88.1 Allergy status to other antibiotic agents; Z88.2 Allergy status to sulfonamides; Z90.49 Acquired absence of other specified parts of digestive tract; Z85.048 Personal history of other malignant neoplasm of rectum, rectosigmoid junction, and anus
CPT/HCPCS: 36415; 71046; 80053; 81003; 83735; 84484; 85025; 85610; 85730; 93005; 96360; 99284

== ENCOUNTER 2021-04-10 10:26 | Day surgery (SDC) | payer MEDICARE ==
[2021-04-05 13:56] VITALS: BMI 24.1
[~2021-04-10 10:26] MED LIST changes: -DEXAMETHASONE SOD PHOSPHATE 10 MG/ML 1 ML VIAL IV ONE; -HYDROmorphone 1 MG/ML 1 ML SYRINGE IVP PRN; +LIDOCAINE 1% (10MG/ML) FOR IV START INTRADERMA PRN; -LIDOCAINE 1% 20 ML VIAL (10MG/ML) FOR IV START INTRADERMA PRN; -MIDAZOLAM 2 MG/2 ML VIAL IV PRN; -ONDANSETRON 4 MG/2 ML VIAL IVP ONE; -Pre Op ABX Message 1 EACH MISC MISCELLANE ONE; -fentaNYL (PF) 50 MCG/ML 2 ML AMP IV PRN
[2021-04-10 10:46] VITALS: TEMP 97.8
[2021-04-10] MEDS ORDERED: PROPOFOL 10 MG/ML 20 ML VIAL IV ONE (11:22)
--- NOTE | 2021-04-10 11:55 | P.PCN ---
Date of Procedure: 04/10/21 Procedure(s) Performed: BRIEF HISTORY: Patient is a 66-year-old pleasant male scheduled for an elective colonoscopy as a part of value should of chronic diarrhea and intermittent rectal bleeding. She has prior history of anal cancer for which she underwent chemoradiation and remains in clinical remission. PROCEDURE PERFORMED: Colonoscopy with argon plasma coagulation PREOPERATIVE DIAGNOSIS: Intermittent rectal bleeding and chronic diarrhea. IV sedation per Anesthesia. PROCEDURE: After informed consent was obtained, the patient, was brought into the endoscopy unit. IV sedation was administered by Anesthesia under continuous monitoring. Digital rectal examination was normal. Initially the Olympus CF-160 flexible video colonoscope was then inserted in the rectum, gradually advanced into the cecum with moderate to severe difficulty. Careful examination was performed as the scope was gradually being withdrawn. Ileocecal valve and the appendiceal orifice were visualized and appeared normal. Prep was excellent. Mucosa of the cecum, ascending colon, transverse colon, descending colon, sigmo id colon, and rectum appeared normal. In the distal rectum there were scattered leftconsistent with radiation proctitis and argon plasma coagulation was performed. The patient tolerated the procedure well. IMPRESSION: Scattered telangiectasia in the distal rectum consistent with mild radiation proctitis status post argon plasma coagulation rest of the colon appeared normal. RECOMMENDATIONS: Findings of this examination were discussed with the patient as well as her family. She was advised to be a high-fiber diet and take fiber supplements a regular basis.
[2021-04-10 12:00] VITALS: RESP 16
[2021-04-10 12:16] VITALS: BP 126/65; PULSE 78
== END 2021-04-10 12:51 | disposition home or self-care (01) ==
LOC: ORWHC2ENDO 10:26
PROVIDERS: ATTEND Internal Medicine Gastroenterology
DX: K62.7 Radiation proctitis (principal); E78.5 Hyperlipidemia, unspecified; Z85.048 Personal history of other malignant neoplasm of rectum, rectosigmoid junction, and anus; Z92.3 Personal history of irradiation
CPT/HCPCS: 45382; J2704

== ENCOUNTER → 2021-05-21 | Outpatient (CLI) | payer MEDICARE ==
--- NOTE | 2021-05-24 09:51 | MM ---
Reason for exam: screening (asymptomatic). Last mammogram was performed 1 year ago. History: Patient is postmenopausal, has history of other cancer at age 63, and has history of colon cancer at age 57. Physical Findings: A clinical breast exam by your physician is recommended on an annual basis and results should be correlated with mammographic findings. MG 3D Screening Mammo W/Cad Bilateral CC and MLO view(s) were taken. Prior study comparison: May 21, 2020, bilateral MG 3d screening mammo w/cad. April 25, 2019, bilateral MG 3d screening mammo w/cad. The breast tissue is heterogeneously dense. This may lower the sensitivity of mammography. Stable benign calcifications. There is no discrete abnormality. No significant changes when compared with prior studies. ASSESSMENT: Benign, BI-RAD 2 RECOMMENDATION: Routine screening mammogram of both breasts in 1 year.
== END | disposition home or self-care (01) ==
LOC: RADMAMWWP 09:56
PROVIDERS: ATTEND Internal Medicine Hematology & Oncology
DX: Z12.31 Encounter for screening mammogram for malignant neoplasm of breast (principal); Z78.0 Asymptomatic menopausal state; Z85.038 Personal history of other malignant neoplasm of large intestine
CPT/HCPCS: 77063; 77067

== ENCOUNTER → 2021-10-17 | Outpatient (CLI) | payer MEDICARE ==
--- NOTE | 2021-10-18 07:00 | BMR ---
EXAMINATION TYPE: MR breast BILAT wo/w con DATE OF EXAM: 10/17/2021 COMPARISON: Prior MRI bilateral breasts February 09, 2020 BI-RADS 2 both breasts. Prior 3-D screening m ammogram May 21, 2021 BI-RADS 2. HISTORY: Genetic susceptibility to other malignant neoplasm. History of uterine\colon cancer TECHNIQUE: A series of fat and water weighted images in the long and short axis views of both breasts are obtained in conjunction with dynamic contrast MRI with subtraction technique. The patient was i njected with 7 mL intravenous Gadavist gadolinium contrast. Three-dimensional and additional postpr ocessing imaging is created on independent workstation and reviewed during official interpretation of this study. FINDINGS: Scattered fibroglandular tissue throughout both breasts is redemonstrated. Left breast arlene uring smaller in size versus right breast on current study perhaps positional. T2 and STIR weighted i mages show no significant cystic change or focal fluid collection in either breast. No suspicious axi llary adenopathy is noted bilaterally. Postcontrast imaging shows fairly mild symmetric background en hancement. Delayed dynamic postcontrast imaging shows no suspicious intramammary adenopathy bilateral ly. With regards to the right breast. No suspicious skin thickening is seen. The chest wall is intact. No pathologic enhancement or enhancing masses are noted. With regards to the left breast there is artifact distortion from Mediport catheter upper inner quadr ant redemonstrated. No suspicious skin thickening is seen. No suspicious enhancement or enhancing mas ses identified. The chest wall is intact. IMPRESSION: No MRI evidence for invasive malignancy in either breast. BI-RADS 2 benign findings right breast BI-RADS 2 benign findings left breast Recommendation: Patient due for annual screening mammogram April 2022. Consider annual MRI surveil thee in high risk patient.
== END | disposition home or self-care (01) ==
LOC: RADMRIMAIN 15:08
PROVIDERS: ATTEND Internal Medicine Hematology & Oncology
DX: Z15.09 Genetic susceptibility to other malignant neoplasm (principal); Z85.038 Personal history of other malignant neoplasm of large intestine
CPT/HCPCS: C8937; C8908; A9585; 77049

== ENCOUNTER → 2021-12-05 | Outpatient (CLI) | payer MEDICARE ==
[2021-12-05 18:37] LABS: Basophils # (A) 0.04 X 10*3/uL (0.00-0.10); Basophils % (A) 0.7 %; Eosinophils # (A) 0.14 X 10*3/uL (0.04-0.35); Eosinophils % (A) 2.4 %; HCT 38.2 % (37.2-46.3); HGB 12.7 g/dL (12.0-15.0); Immature Grans, Automated 0.3 %; Lymphocytes # (A) 0.93 X 10*3/uL (0.90-5.00); Lymphocytes % (A) 16.1 %; MCH 33.4 pg (27.0-32.0); MCHC 33.2 g/dL (32.0-37.0); MCV 100.5 fL (80.0-97.0); Mean Platelet Volume 8.9 fL (9.5-12.2); Monocytes # (A) 0.58 X 10*3/uL (0.20-1.00); NRBC Per 100 WBC 0 /100 WBCS (0.0-0.0); Neutrophils # (A) 4.08 X 10*3/uL (1.80-7.70); Neutrophils % (A) 70.5 %; Platelet Count 231 X 10*3/uL (140-440); RDW 12.5 % (11.5-14.5); WBC 5.79 X 10*3/uL (4.50-10.00)
[2021-12-05 18:39] LABS: Blood Urea Nitrogen 11.5 mg/dL (9.0-27.0); C Reactive Protein <0.30 mg/dL (0.00-0.80); Vitamin B12 >2000.0 pg/mL (200.0-944.0)
[2021-12-05 18:46] LABS: Protein, Total 6.2 g/dL (6.2-8.2)
[2021-12-05 19:05] LABS: Erythrocyte Sedimentation Rate 7 mm/Hr (0-30)
[2021-12-06 13:54] LABS: Albumin 3.78 g/dL (3.80-4.90); Gamma Globulin 0.66 g/dL (0.70-1.50)
[2021-12-06 14:07] LABS: C-ANCA <1:20 Titer (<1:20)
== END | disposition home or self-care (01) ==
LOC: LABWHC1 11:36
PROVIDERS: ATTEND Psychiatry & Neurology Vascular Neurology
DX: Z13.31 Encounter for screening for depression (principal); G62.9 Polyneuropathy, unspecified
CPT/HCPCS: 36415; 82607; 83036; 84165; 84520; 85025; 85652; 86038; 86140; 86255; 86334; 86780

== ENCOUNTER → 2022-03-07 | Outpatient (CLI) | payer MEDICARE ==
[2022-03-07 10:23] LABS: African American GFR (CKD) >90 (>60 ml/min/1.73 sqM); Blood Urea Nitrogen 14 mg/dL (7-17); Non-African American GFR(CKD) 89 (>60 ml/min/1.73 sqM)
--- NOTE | 2022-03-07 12:03 | CT ---
EXAMINATION TYPE: CT ChestAbdPelvis w con DATE OF EXAM: 03/07/2022 COMPARISON: 02/26/2021 HISTORY: Follow up of anal and uterine cancer CT DLP: 1413 mGycm CONTRAST: CT scan of the chest, abdomen and pelvis is performed without Oral Contrast and with IV Contrast, pat ient injected with 70 mL of Isovue 300. CT Chest: LUNGS: The lungs are clear and free of infiltrate or atelectasis. Stable 7 mm pulmonary nodular densi ty right upper lobe posteriorly. There are a couple stable subpleural nodule seen within the right up per lobe measuring less than 3 mm each. No new nodules appreciated.. No pleural effusion or CT evide nce of interstitial lung disease. MEDIASTINUM: Thoracic aorta is of normal caliber. The heart is not enlarged. No evidence for media stinal mass or adenopathy. HILAR STRUCTURES: No evidence for mass. No hilar adenopathy is appreciated. OTHER: No significant abnormality. CONTRAST CT ABDOMEN AND PELVIS FINDINGS: LIVER/GB: Cholecystectomy changes. No space occupying hepatic lesion. Biliary tree is of normal calib er. PANCREAS: No inflammation. No distinct mass. SPLEEN: No splenic enlargement. No lesion seen. ADRENALS: No nodule. No thickening. KIDNEYS/BLADDER: No hydronephrosis. No nephrolithiasis. No disctinct renal mass. BOWEL: Normal appendix. Normal bowel caliber. No inflammation. GENITAL ORGANS: Hysterectomy changes. No evidence for vaginal cuff mass. No ovarian or adnexal mass a ppreciated. LYMPH NODES: No greater than 1cm abdominal or pelvic lymph nodes are appreciated. AORTA: No significant abnormality. OSSEOUS STRUCTURES: No significant abnormality is seen. OTHER: No significant additional abnormality is seen. IMPRESSION: 1. Stable evaluation. No evidence for recurrent disease or metastatic disease at this time.
== END | disposition home or self-care (01) ==
LOC: RADCTMAIN 09:22
PROVIDERS: ATTEND Internal Medicine Hematology & Oncology
DX: C54.9 Malignant neoplasm of corpus uteri, unspecified (principal)
CPT/HCPCS: 82565; 84520; 71260; 74177; 36415; Q9967

== ENCOUNTER → 2022-06-10 | Outpatient (CLI) | payer MEDICARE ==
--- NOTE | 2022-06-11 17:58 | MM ---
Reason for Exam: Screening (asymptomatic). Last mammogram was performed 1 year(s) and 1 month(s) ago. Patient History: Menarche at age 12. First Full-Term at age 23. Left ovary removed at age 63. Right ovary removed at age 63. Hysterectomy at age 63. Postmenopausal. Previous chemotherapy at age 45. Risk Values: Yvrose 5 year model risk: 1.5%. NCI Lifetime model risk: 5.0%. Prior Study Comparison: 04/25/2019 Bilateral Screening Mammogram, [facility]. 05/21/2020 Bilateral Screening Mammogram, [facility]. 05/21/2021 Bilateral Screening Mammogram, [facility]. Tissue Density: There are scattered fibroglandular densities. Findings: Analyzed By CAD. Pattern is stable. A port is present on the left. Benign calcifications on the left. No suspicious groups of microcalcifications, spiculated or lobular masses, architectural distortion or other secondary signs of malignancy are mammographically apparent. Overall Assessment: Benign, BI-RAD 2 Management: Screening Mammogram of both breasts in 1 year. A negative mammogram report should not preclude additional follow up of suspicious palpable abnormalities. Patient should continue monthly self breast exam. A clinical breast exam by your physician is recommended on an annual basis and results should be correlated with mammographic findings. Electronically signed and approved by: Carlos Avila D.O. Radiologis
== END | disposition home or self-care (01) ==
LOC: RADMAMWWP 14:31
PROVIDERS: ATTEND Family Medicine
DX: Z12.31 Encounter for screening mammogram for malignant neoplasm of breast (principal); Z78.0 Asymptomatic menopausal state; Z90.721 Acquired absence of ovaries, unilateral
CPT/HCPCS: 77063; 77067

== ENCOUNTER → 2022-10-07 | Outpatient (CLI) | payer MEDICARE ==
--- NOTE | 2022-10-07 15:04 | BMR ---
EXAMINATION TYPE: MR breast BILAT wo/w con DATE OF EXAM: 10/07/2022 COMPARISON: Prior MRI bilateral breasts October 17, 2021 BI-RADS 2 and older study 2019. Prior 3-D scre ening mammogram June 10, 2022 BI-RADS 2. HISTORY: Positive genetic testing, hx uterine cancer. TECHNIQUE: A series of fat and water weighted images in the long and short axis views of both breasts are obtained in conjunction with dynamic contrast MRI with subtraction technique. The patient was i njected with 7 mL intravenous Gadavist gadolinium contrast. Three-dimensional and additional postpr ocessing imaging is created on independent workstation and reviewed during official interpretation of this study. FINDINGS: Scattered fibroglandular tissue throughout both breasts is redemonstrated. T2 and STIR weig hted images show no significant cystic change or focal fluid collection in either breast. No suspicio us axillary adenopathy is noted bilaterally. Postcontrast imaging show persistent mild symmetric back ground enhancement. Delayed dynamic postcontrast imaging shows no suspicious intramammary adenopathy bilaterally. With regards to the right breast. No suspicious skin thickening is seen. The chest wall is intact. No pathologic enhancement or enhancing masses are noted. With regards to the left breast there is artifact distortion from Mediport catheter upper inner quadr ant posteriorly redemonstrated. No suspicious skin thickening is seen. No suspicious enhancement or e nhancing masses identified. The chest wall is intact. IMPRESSION: No MRI evidence for invasive malignancy in either breast. No significant change from most recent MRI. BI-RADS 2 benign findings right breast BI-RADS 2 benign findings left breast Recommendation: Patient due for annual screening mammogram May 2023. Advise annual MRI surveilla nce in high risk patient.
== END | disposition home or self-care (01) ==
LOC: RADMRIMAIN 11:23
PROVIDERS: ATTEND Internal Medicine Hematology & Oncology
DX: C54.9 Malignant neoplasm of corpus uteri, unspecified (principal)
CPT/HCPCS: C8908; A9585; 77049

== ENCOUNTER → 2023-03-09 | Outpatient (CLI) | payer MEDICARE ==
--- NOTE | 2023-03-12 10:48 | CT ---
EXAMINATION TYPE: CT ChestAbdPelvis wo con DATE OF EXAM: 03/09/2023 COMPARISON: 03/07/2022 HISTORY: f/u anal and uterine ca CT DLP: 503.3mGycm Unenhanced CT of the Chest, Abdomen and Pelvis Unenhanced CT of the chest ,abdomen and pelvis is performed. The lack of intravenous contrast limits evaluation of the solid and hollow viscera. Oral contrast: No CT Chest: LUNGS: Right apical pleural nodules measure 8.6 mm versus 7 mm previously and 7.3 mm versus 6 mm prev iously. A Couple of subpleural 3 mm nodules are unchanged. No new nodules appreciated. The lungs are otherwise clear. No infiltrate or pleural effusion. No volume loss. MEDIASTINUM: Thoracic aorta is of normal caliber. The heart is not enlarged. No evidence for media stinal mass or adenopathy. HILAR STRUCTURES: No evidence for mass. No hilar adenopathy is appreciated. OTHER: No significant abnormality. CONTRAST CT ABDOMEN AND PELVIS: LIVER/GB: The gallbladder surgically absent. No space occupying hepatic lesion. Biliary tree is of no rmal caliber. PANCREAS: No inflammation. No distinct mass. SPLEEN: No splenic enlargement. No lesion seen. ADRENALS: No nodule. No thickening. KIDNEYS/BLADDER: No hydronephrosis. No nephrolithiasis. No disctinct renal mass. BOWEL: Normal appendix. Normal bowel caliber. No inflammation. GENITAL ORGANS: Hysterectomy changes are present. LYMPH NODES: No greater than 1cm abdominal or pelvic lymph nodes areappreciated. AORTA: No significant abnormality. OSSEOUS STRUCTURES: No significant abnormality is seen. OTHER: No significant additional abnormality is seen. IMPRESSION: 1. Stable evaluation. No evidence for recurrent disease or metastatic disease at this time.
== END | disposition home or self-care (01) ==
LOC: RADCTMAIN 14:11
PROVIDERS: ATTEND Internal Medicine Hematology & Oncology
DX: Z03.89 Encounter for observation for other suspected diseases and conditions ruled out (principal); C54.9 Malignant neoplasm of corpus uteri, unspecified; C21.0 Malignant neoplasm of anus, unspecified; E78.5 Hyperlipidemia, unspecified; G62.2 Polyneuropathy due to other toxic agents
CPT/HCPCS: 71250; 74176

== ENCOUNTER → 2023-05-07 | Outpatient (CLI) | payer MEDICARE ==
--- NOTE | 2023-05-07 14:13 | NM ---
EXAMINATION TYPE: NM gastric emptying static DATE OF EXAM: 05/07/2023 COMPARISON: NONE CLINICAL INDICATION: Female, 68 years old with history of R11.2 nausea and vomiting; Following administration of 1.88 mCi Tc 99m Sulfur Colloid with 4 oz of scrambled eggs, 3/4 piece of toast, 4 oz of water, projection images of the abdomen were obtained 10 minutes post ingestion. Patient Emptying Values 1 Hour 31 % 2 Hours 59 % 3 Hours 86 % 4 Hours 96 % Gastroesophagel reflux: None IMPRESSION: 1. No evidence of delayed gastric emptying. Gastric emptying normal percentage values: 30 minutes: <70% of retention (> 30% emptying) suggests abnormally fast emptying. 60 minutes: <90% retention (>10% emptying) is normal; less than 30% retention (>70% emptying) suggest s abnormally rapid empying. 90 minutes: <65% retention (> 35% emptying) is normal. 120 minutes: <60% retention (> 40% emptying) is normal. 180 minutes: <30% retention (> 70% emptying) is normal. Gastric emptying T-1/2: Solid: The normal range is 60-105 minutes Liquid only: Normal range is 10-45 minutes. Liquid only-children: At 60 minutes, normal range is 44-58 % . Liquid only-infants: At 60 minutes, normal range is 32-64 %. Additional references: Gastric Emptying Scintigraphy [email or web address]://[email or web address]
== END | disposition home or self-care (01) ==
LOC: RADNMMAIN 07:05
PROVIDERS: ATTEND Family Medicine
DX: E78.5 Hyperlipidemia, unspecified (principal); N39.0 Urinary tract infection, site not specified; R11.2 Nausea with vomiting, unspecified
CPT/HCPCS: 78264; A9541

== ENCOUNTER 2023-06-05 12:26 | Day surgery (SDC) | payer MEDICARE ==
[2023-06-04 08:46] VITALS: BMI 25.2
[2023-06-05 13:34] VITALS: RESP 16; TEMP 96.9
[2023-06-05] MEDS ORDERED: LIDOCAINE 2% (PF) 20 MG/ML 5 ML VIAL ONE (14:20)
[2023-06-05] MEDS ORDERED: PROPOFOL 10 MG/ML 20 ML VIAL IV ONE (14:20)
--- NOTE | 2023-06-05 14:43 | P.PCN ---
Date of Procedure: 06/05/23 Procedure(s) Performed: BRIEF HISTORY: Patient is a 68-year-old, pleasant, white female scheduled for an upper endoscopy as a part of evaluation of intermittent episodes of nausea vomiting and abdominal pain that happened on clear. The episodes usually last for the kind between episodes she is asymptomatic.. Last episode was 2 months ago.. PROCEDURE PERFORMED: Esophagogastroduodenoscopy with biopsy. PREOPERATIVE DIAGNOSIS: Intermittent episodes of epigastric pain is worse with nausea vomiting. IV sedation per anesthesia. PROCEDURE: After informed consent was obtained, the patient was brought into the endoscopy unit. IV sedation was administered by Anesthesia under continuous monitoring. Initially the Olympus GIF-140 video endoscope was inserted into the mouth. Esophagus intubated without any difficulty. It was gradually advanced into the stomach and duodenum and carefully examined. The bulb and the second part of the duodenum appeared normal. His were done from the duodenum to rule out celiac disease. The scope at this time was withdrawn to the stomach, adequately insufflated with air, and upon careful examination, mucosa of the antrum and mild gastritis and biopsies were done from this area. Mucosa of the, body, cardia and the fundus appeared normal. The scope was then withdrawn into the esophagus. Small hiatal hernia noted. The GE junction was located at 39 cm from the incisors. There was circumferential erythema the GE junction consistent with LA grade a reflux esophagitis. The esophagus appeared normal. There were no erosions or ulcerations seen and the patient tolerated the procedure well. IMPRESSION: 1. Mild antral gastritis. 2. Small hiatal hernia and LA grade A reflux esophagitis. RECOMMENDATIONS: The findings of this examination were discussed with the patient LL as her family. She was advised to follow with the biopsy results. Continue current medications and follow antireflux measures.
[2023-06-05 15:12] VITALS: BP 124/75; PULSE 76
== END 2023-06-05 15:38 | disposition home or self-care (01) ==
LOC: ORWHC2ENDO 12:26
PROVIDERS: ATTEND Internal Medicine Gastroenterology
DX: K29.50 Unspecified chronic gastritis without bleeding (principal); K44.9 Diaphragmatic hernia without obstruction or gangrene; K21.00 Gastro-esophageal reflux disease with esophagitis, without bleeding; E78.5 Hyperlipidemia, unspecified; F41.9 Anxiety disorder, unspecified; Z79.899 Other long term (current) drug therapy
CPT/HCPCS: 43239; 88305; J2704; J2001

== ENCOUNTER → 2023-06-11 | Outpatient (CLI) | payer MEDICARE ==
--- NOTE | 2023-06-17 08:50 | MM ---
Reason for Exam: Screening (asymptomatic). Last screening mammogram was performed 12 month(s) ago. Patient History: Menarche at age 12. First Full-Term at age 23. Left ovary removed at age 63. Right ovary removed at age 63. Hysterectomy at age 63. Postmenopausal. Previous chemotherapy at age 45. Niece had breast cancer, age 40. Risk Values: Yvrose 5 year model risk: 1.5%. NCI Lifetime model risk: 4.8%. Prior Study Comparison: 05/21/2020 Bilateral Screening Mammogram, [facility]. 05/21/2021 Bilateral Screening Mammogram, [facility]. 06/10/2022 Bilateral MG 3D screening mammo w/cad, [facility]. Tissue Density: There are scattered fibroglandular densities. Findings: Analyzed By CAD. [id number] projects over the left breast. There is no suspicious group of microcalcifications or new suspicious mass. Benign-appearing calcifications bilaterally. Overall Assessment: Benign, BI-RAD 2 Management: Screening Mammogram of both breasts in [address] [facility] will attempt to contact patient to return for supplemental views and ultrasound if indicated. Patient should continue monthly self-breast exams. A clinical breast exam by your physician is recommended on an annual basis. This exam should not preclude additional follow-up of suspicious palpable abnormalities. Note on Yvrose scores and lifetime risk: 1. A Yvrose score greater than 3% is considered moderate risk. If this is the case, consider specialist referral to assess eligibility for a risk reducing agent. 2. If overall lifetime risk for the development of breast cancer is 20% or higher, the patient may qualify for future screening with alternating mammogram and breast MRI. Electronically signed and approved by: Paulie Padron DO
== END | disposition home or self-care (01) ==
LOC: RADMAMWWP 10:12
PROVIDERS: ATTEND Internal Medicine Hematology & Oncology
DX: Z12.31 Encounter for screening mammogram for malignant neoplasm of breast (principal); Z78.0 Asymptomatic menopausal state; Z80.3 Family history of malignant neoplasm of breast
CPT/HCPCS: 77063; 77067

== ENCOUNTER → 2023-09-14 | Outpatient (CLI) | payer MEDICARE ==
--- NOTE | 2023-09-15 18:14 | CA ---
Transthoracic Echo Report Name: Magalie Phan Age: 68 Gender: F : 1955 Exam Date: 09/14/2023 14:52 Exam Location: [place] [facility] Ht (in): 65 Wt (lb): 150 Ordering Physician: Sudarshan Kauffman MD Attending/Referring Phys: Rowan Harley PAC String Top Sealer Jyoti Lorenzo RCS Procedure CPT: Indications: R01.1 CARDIAC MURMUR, UNSPECIFIED Cardiac Hx: Technical Quality: Good Contrast 1: Total Dose (mL): Contrast 2: Total Dose (mL): MEASUREMENTS (Male / Female) Normal Values 2D ECHO LV Diastolic Diameter PLAX 4.6 cm 4.2 - 5.9 / 3.9 - 5.3 cm LV Systolic Diameter PLAX 3.2 cm IVS Diastolic Thickness 0.6 cm 0.6 - 1.0 / 0.6 - 0.9 cm LVPW Diastolic Thickness 0.7 cm 0.6 - 1.0 / 0.6 - 0.9 cm LV Relative Wall Thickness 0.3 RV Internal Dim ED PLAX 3.3 cm LVOT Diameter 2.1 cm LV Diastolic Volume MOD BP 112.5 cm??? 67 - 155 / 56 - 104 cm??? LV Systolic Volume MOD BP 52.6 cm??? 22 - 58 / 19 - 49 cm??? LV Ejection Fraction MOD BP 53.3 % >= 55 % LV Cardiac Index MOD BP 2597.9 cm???/min???m??? LV Diastolic Volume MOD 4C 107.4 cm??? LV Systolic Volume MOD 4C 52.1 cm??? LV Ejection Fraction MOD 4C 51.5 % LV Cardiac Index MOD 4C 2395.4 cm???/min???m??? LV Diastolic Length 4C 7.6 cm LV Systolic Length 4C 6.2 cm LV Diastolic Volume MOD 2C 113.3 cm??? LV Systolic Volume MOD 2C 48.1 cm??? LV Ejection Fraction MOD 2C 57.5 % LV Cardiac Index MOD 2C 2824.4 cm???/min???m??? LV Diastolic Length 2C 7.9 cm LV Systolic Length 2C 6.9 cm LA Volume 36.5 cm??? 18 - 58 / 22 - 52 cm??? LA Volume Index 20.6 cm???/m??? 16 - 28 cm???/m??? Ascending Aorta Diameter 3.3 cm DOPPLER AV Peak Velocity 107.2 cm/s AV Peak Gradient 4.6 mmHg AV Mean Velocity 74.8 cm/s AV Mean Gradient 2.5 mmHg AV Velocity Time Integral 23.1 cm LVOT Peak Velocity 96.6 cm/s LVOT Peak Gradient 3.7 mmHg LVOT Velocity Time Integral 19.4 cm LVOT Stroke Volume 69.7 cm??? LVOT Stroke Volume Index 39.8 ml/m??? LVOT Cardiac Index 3021.1 cm???/min???m??? AV Area Cont Eq vti 3.0 cm??? AV Area Cont Eq pk 3.2 cm??? MV Area PHT 3.5 cm??? Mitral E Point Velocity 48.4 cm/s Mitral A Point Velocity 59.7 cm/s Mitral E to A Ratio 0.8 MV Deceleration Time 215.5 ms MV E' Velocity 5.8 cm/s Mitral E to MV E' Ratio 8.3 TR Peak Velocity 205.1 cm/s TR Peak Gradient 16.8 mmHg Right Ventricular Systolic Press 21.8 mmHg PV Peak Velocity 82.3 cm/s PV Peak Gradient 2.7 mmHg FINDINGS Left Ventricle Left ventricular ejection fraction is estimated at 50-55 %. Mildly increased left ventricular diastolic volume. Mildly increased left ventricular systolic volume. Mildly decreased left ventricular ejection fraction. No obvious regional wall motion abnormalities. Right Ventricle Normal right ventricular size and function. Right ventricular systolic pressure within normal limits. Right Atrium Normal right atrial size. Left Atrium Normal left atrial size. Mitral Valve Mitral valve thickened. No mitral stenosis. No evidence for mitral valve prolapse. Mild mitral regurgitation. Aortic Valve Trileaflet aortic valve. No aortic valve stenosis or regurgitation. Tricuspid Valve Structurally normal tricuspid valve. No tricuspid stenosis. Mild tricuspid regurgitation. Pulmonic Valve Structurally normal pulmonic valve. No pulmonic stenosis. Trace pulmonic regurgitation. Pericardium No pericardial effusion. Aorta Normal size aortic root and proximal ascending aorta. CONCLUSIONS 1. Left ventricle systolic function is borderline normal 2. Mild mitral, and tricuspid regurgitation with no evidence of pulmonary hypertension Previewed by: Dr. Alexandre Hylton MD (Electronically Signed) Final Date: 15 September 2023 18:14
== END | disposition home or self-care (01) ==
LOC: RADECHMAIN 14:41
PROVIDERS: ATTEND Family Medicine
DX: I07.1 Rheumatic tricuspid insufficiency (principal); R01.1 Cardiac murmur, unspecified
CPT/HCPCS: 93306

== ENCOUNTER → 2023-09-25 | Outpatient (CLI) | payer MEDICARE ==
--- NOTE | 2023-09-29 10:21 | BMR ---
EXAM DATE: 09/28/2023 EXAM DESCRIPTION: MRI-Breast Bilat (W/WO Contrast) INDICATION: >20% lifetime risk for malignancy presenting for high risk surveillance. ATN mutation. COMPARISON: Comparison is made with relevant prior imaging in PACS. CONTRAST: 7.0 cc of gadobutrol TECHNIQUE: Multiplanar MRI imaging of both breasts was performed with a dedicated breast coil, before and after intravenous administration of gadolinium contrast, using the standard breast mass protocol. Computer-aided detection was used to aid in interpretation. Study was performed at [facility] with Radiologic interpretation by [facility]. FINDINGS: General breast composition: There are scattered areas of fibroglandular tissue Background parenchymal enhancement: Mild FINDINGS: Right Breast: Review of the dynamic contrast-enhanced series shows no rapidly enhancing masses, suspicious enhancement patterns or other abnormalities. The T2 weighted series shows no abnormality. No MRI evidence of lymphadenopathy. Left Breast: Review of the dynamic contrast-enhanced series shows no rapidly enhancing masses, suspicious enhancement patterns or other abnormalities. The T2 weighted series shows no abnormality. No MRI evidence of lymphadenopathy. Miscellaneous findings:Left device in the upper chest soft tissue causing susceptibility artifact. IMPRESSION: No MRI evidence of malignancy. BI-RADS Category1- Negative Recommendation: MRI screening in 1 year. Recommend routine screening on schedule, patient is due for screening mammogram in 05/2023. [facility]
== END | disposition home or self-care (01) ==
LOC: RADMRIMAIN 13:24
PROVIDERS: ATTEND Internal Medicine Hematology & Oncology
DX: Z15.09 Genetic susceptibility to other malignant neoplasm (principal)
CPT/HCPCS: C8908; A9585; 77049

== ENCOUNTER → 2024-03-14 | Outpatient (CLI) | payer MEDICARE ==
[2024-03-14 13:02] LABS: African American GFR (CKD) >90 (>60 ml/min/1.73 sqM); Blood Urea Nitrogen 15 mg/dL (7-17); Non-African American GFR(CKD) 88 (>60 ml/min/1.73 sqM)
--- NOTE | 2024-03-14 13:38 | CT ---
EXAMINATION TYPE: CT abdomen pelvis w con CT DLP: 1046 mGycm, Automated exposure control for dose reduction was used. DATE OF EXAM: 03/14/2024 1:25 PM COMPARISON: 03/07/2022 CLINICAL INDICATION: Female, 69 years old with history of C21.0 ANUS CANCER; anus ca TECHNIQUE: Axial CT abdomen pelvis w con;Sagittal and coronal reformats were created on a separate w orkstation. Contrast used:100 mL of Isovue 300 with IV Contrast, (none if empty) Oral contrast used: without Oral Contrast (none if empty) FINDINGS: LOWER CHEST: Unremarkable ABDOMEN LIVER: Unremarkable GALLBLADDER AND BILE DUCTS: Gallbladder is surgically absent with mild intrahepatic and extra hepatic biliary dilatation likely physiologic and a postcholecystectomy change. No evidence of choledocholit hiasis. PANCREAS: Unremarkable. SPLEEN: Unremarkable. ADRENAL GLANDS: Unremarkable. KIDNEYS AND URETERS: No evidence for hydronephrosis and obstructing PELVIS BLADDER: Unremarkable REPRODUCTIVE: The uterus is surgically absent. ABDOMEN & PELVIS STOMACH AND BOWEL: No evidence of bowel obstruction. Mild wall thickening of the rectum near the anus series 3 image 78 possibly representing posttreatment changes. No lymphadenopathy visualized. PERITONEUM/RETROPERITONEUM: No evidence of pneumoperitoneum or free fluid. VASCULATURE: No evidence of aortic aneurysm. MUSCULOSKELETAL: No acute osseous abnormalities. Moderate disc degeneration changes are present throu ghout the thoracolumbar spine. Transverse of the adjoining endplates of L3-L4 on the right with scoli osis changes. Degeneration changes of them, pubic symphysis. LYMPH NODES: No gross evidence for lymphadenopathy. SOFT TISSUE/ABDOMINAL WALL: Fat-containing umbilical hernia. IMPRESSION: 1. No evidence for lymphadenopathy or evidence of metastatic disease. There is mild circumferential wall thickening of the rectum near the anus possibly representing posttreatment change versus none di lated bowel 2. Sclerosis near the sacroiliac joint and the left favored represent degeneration given mild increa sed from 2021. [facility], Workstation: [id number], 03/14/2024 1:36 PM
== END | disposition home or self-care (01) ==
LOC: RADCTMAIN 11:58
PROVIDERS: ATTEND Internal Medicine Hematology & Oncology
DX: C21.0 Malignant neoplasm of anus, unspecified
CPT/HCPCS: 36415; 74177; 82565; 84520

== ENCOUNTER → 2024-06-16 | Outpatient (CLI) | payer MEDICARE ==
--- NOTE | 2024-06-20 16:30 | MM ---
Reason for Exam: Screening (asymptomatic). Last screening mammogram was performed 12 month(s) ago. Patient History: Menarche at age 12. First Full-Term at age 23. Left ovary removed at age 63. Right ovary removed at age 63. Hysterectomy at age 63. Postmenopausal. Previous chemotherapy at age 45. Niece had breast cancer, age 40. Risk Values: Yvrose 5 year model risk: 1.5%. NCI Lifetime model risk: 4.5%. Prior Study Comparison: 05/21/2021 Bilateral Screening Mammogram, [facility]. 06/10/2022 Bilateral MG 3D screening mammo w/cad, [facility]. 06/11/2023 Bilateral MG 3D screening mammo w/cad, [facility]. Tissue Density: The breasts are heterogeneously dense, which may obscure small masses. Findings: Analyzed By CAD. The pattern is symmetrical. No significant interval change is evident. Benign spherical calcifications are present bilaterally. Port is present left breast. No suspicious groups of microcalcifications, spiculated or lobular masses, architectural distortion or other secondary signs of malignancy are mammographically apparent. Overall Assessment: Benign, BI-RAD 2 Management: Screening Mammogram of both breasts in 1 year. A negative mammogram report should not preclude additional follow up of suspicious palpable abnormalities. Patient should continue monthly self breast exam. A clinical breast exam by your physician is recommended on an annual basis and results should be correlated with mammographic findings. Note on Yvrose scores and lifetime risk: 1. A Yvrose score greater than 3% is considered moderate risk. If this is the case, consider specialist referral to assess eligibility for a risk reducing agent. 2. If overall lifetime risk for the development of breast cancer is 20% or higher, the patient may qualify for future screening with alternating mammogram and breast MRI. [facility], , 06/20/2024 4:27 PM. Electronically signed and approved by: Carlos Avila D.O. Radiologis
== END | disposition home or self-care (01) ==
LOC: RADMAMWWP 10:59
PROVIDERS: ATTEND Internal Medicine Hematology & Oncology
DX: Z12.31 Encounter for screening mammogram for malignant neoplasm of breast (principal); R92.333 Mammographic heterogeneous density, bilateral breasts; Z78.0 Asymptomatic menopausal state; Z90.722 Acquired absence of ovaries, bilateral
CPT/HCPCS: 77063; 77067

== ENCOUNTER 2024-06-29 10:54 | Day surgery (SDC) | payer MEDICARE ==
[2024-06-23 17:43] VITALS: BMI 25.0
[~2024-06-29 10:54] MED LIST changes: +ONDANSETRON 4 MG/2 ML VIAL IVP PRN
[2024-06-29] MEDS: SODIUM CHLORIDE 0.9% 1,000 ML IV ONE (11:46)
[2024-06-29 11:50] VITALS: TEMP 98
[2024-06-29] MEDS ORDERED: PROPOFOL 10 MG/ML 20 ML VIAL IV ONE (12:41)
--- NOTE | 2024-06-29 13:01 | P.PCN ---
Date of Procedure: 06/29/24 Procedure(s) Performed: BRIEF HISTORY: Patient is a 69-year-old pleasant white female scheduled for an elective colonoscopy as a part of evaluation of iron deficiency anemia. She has history of anal cancer in 2009 and is s/p chemo and radiation. Since that she has been having intermittent episodes of diarrhea but no rectal bleeding. PROCEDURE PERFORMED: Colonoscopy with random biopsies PREOPERATIVE DIAGNOSIS: Iron deficiency anemia. IV sedation per Anesthesia. PROCEDURE: After informed consent was obtained, the patient, was brought into the endoscopy unit. IV sedation was administered by Anesthesia under continuous monitoring. Digital rectal examination was normal. Initially the Olympus CF-160 flexible pediatric video colonoscope was then inserted in the rectum, gradually advanced into the cecum with moderate to severe difficulty. Careful examination was performed as the scope was gradually being withdrawn. Ileocecal valve and the appendiceal orifice were visualized and appeared normal. Prep was fair.. Mucosa of the cecum, ascending colon, transverse colon, descending colon, sigmoi d colon, and rectum appeared normal. Retroflexion was performed in the rectum and there is scattered telangiectasia in the distal rectum consistent with mild radiation proctitis. Biopsies were done from the ascending and descending colon rule out colitis. The patient tolerated the procedure well. IMPRESSION: Mild radiation proctitis Rest of the colon appeared normal. RECOMMENDATIONS: Findings of this examination were discussed with the patient as well as her family. She was advised to have repeat screening colonoscopy in 5 years..
[2024-06-29 13:36] VITALS: BP 121/77; PULSE 75; RESP 16
== END 2024-06-29 14:40 | disposition home or self-care (01) ==
LOC: ORWHC2ENDO 10:54
PROVIDERS: ATTEND Internal Medicine Gastroenterology
DX: K62.7 Radiation proctitis (principal); I78.1 Nevus, non-neoplastic; D50.9 Iron deficiency anemia, unspecified; E78.5 Hyperlipidemia, unspecified; Z87.891 Personal history of nicotine dependence; Z79.899 Other long term (current) drug therapy; Z90.710 Acquired absence of both cervix and uterus; Z90.49 Acquired absence of other specified parts of digestive tract; Z98.890 Other specified postprocedural states; Z85.41 Personal history of malignant neoplasm of cervix uteri; Z92.21 Personal history of antineoplastic chemotherapy; Z85.048 Personal history of other malignant neoplasm of rectum, rectosigmoid junction, and anus; Z88.1 Allergy status to other antibiotic agents; Z88.0 Allergy status to penicillin; Y84.2 Radiological procedure and radiotherapy as the cause of abnormal reaction of the patient, or of later complication, without mention of misadventure at the time of the procedure
CPT/HCPCS: 45380; 88305

== ENCOUNTER → 2024-09-16 | Outpatient (CLI) | payer MEDICARE ==
--- NOTE | 2024-09-16 12:12 | FL ---
EXAMINATION TYPE: FL small bowel follow through DATE OF EXAM: 09/16/2024 COMPARISON: None CLINICAL INDICATION: Female, 69 years old with history of R10.30 LOW ABDOMINAL PAIN; PHH, TECHNIQUE: A single contrast small bowel follow through is performed utilizing barium. COMPARISON: None FINDINGS: Airport Control Operator image of the abdomen shows surgical clips in the gallbladder fossa. Scoliosis with d egenerative change lower lumbar spine. Osteitis symphysis pubis condensans. Moderate retained stool b urden correlate for constipation. The small bowel study shows normal transit to the colon in less than 75 minutes. There is a normal m ucosal fold pattern throughout the small bowel. There is no evidence of any stricture or filling def ect noted. The terminal ileum is spotted and appears unremarkable. IMPRESSION: Normal small bowel follow through. [facility], , 09/16/2024 12:09 PM
== END | disposition home or self-care (01) ==
LOC: RADFLMAIN 09:14
PROVIDERS: ATTEND Internal Medicine Gastroenterology
DX: R19.5 Other fecal abnormalities (principal)
CPT/HCPCS: 74250

== ENCOUNTER → 2024-10-20 | Outpatient (CLI) | payer MEDICARE ==
--- NOTE | 2024-10-28 08:27 | BMR ---
EXAM DATE: 10/20/2024 EXAM DESCRIPTION: MRI-Breast Bilat (W/WO Contrast) INDICATION: High-risk screening. ATN mutation positive COMPARISON: Prior breast MR dated 09/25/2023 and screening mammogram dated 06/16/2024. CONTRAST: 7.0 cc Gadavist contrast material. TECHNIQUE: Multi sequence multiplanar MR imaging of the breasts was obtained. Subsequently, after the uneventful intravenous administration of Gadavist contrast material, 6 dynamic sequences were then obtained. Post processing was performed utilizing a [employer] CAD workstation. FINDINGS: The breasts are composed of scattered fibroglandular tissue. There is mild background parenchymal enhancement identified. No axillary or internal mammary lymphadenopathy. No focal skin thickening or nipple retraction. The bone marrow signal intensity is unremarkable. Susceptibility artifact in the left breast superomedial quadrant at posterior depth likely related to MediPort placement. T2 weighted images demonstrated no dominant cystic lesion in either breast. Post contrast images demonstrated no abnormal enhancement in the left breast to suggest malignancy. A focus of progressive in the superolateral quadrant of right anterior breast (705 image 520) with bright signal intensity on corresponding T2 weighted images (601 image 40) enhancement likely related to T2 shine through. No abdominal mass mint in the right breast to suggest malignancy. There is no abnormal signal or enhancement in the chest wall or subcutaneous tissue. IMPRESSION: 1. No MR evidence of malignancy in either breast. 2. No axillary or internal mammary lymphadenopathy. Final assessment: BI-RADS category 2: Benign findings MTDD
== END | disposition home or self-care (01) ==
LOC: RADMRIMAIN 10:58
PROVIDERS: ATTEND Internal Medicine Hematology & Oncology
DX: Z15.09 Genetic susceptibility to other malignant neoplasm (principal); N17.0 Acute kidney failure with tubular necrosis
CPT/HCPCS: 77049; A9585

== ENCOUNTER 2024-11-09 04:20 | Emergency (ER) | payer MEDICARE ==
[2024-11-09 04:24] VITALS: RESP 18
[2024-11-09 04:56] LABS: Basophils # (A) 0.05 10*3/uL (0.00-0.10); Basophils % (A) 0.4 %; Eosinophils # (A) 0.15 10*3/uL (0.04-0.35); Eosinophils % (A) 1.3 %; HCT 38.6 % (37.2-46.3); HGB 13.2 g/dL (12.0-15.0); Lymphocytes # (A) 0.93 10*3/uL (0.90-5.00); Lymphocytes % (A) 8.2 %; MCH 33.9 pg (27.0-32.0); MCHC 34.2 g/dL (32.0-37.0); MCV 99.2 fL (80.0-97.0); Mean Platelet Volume 8.3 fL (9.5-12.2); Monocytes # (A) 0.93 10*3/uL (0.20-1.00); Monocytes % (A) 8.2 %; Neutrophils # (A) 9.18 10*3/uL (1.80-7.70); Neutrophils % (A) 81.5 %; Platelet Count 205 10*3/uL (140-440); RBC 3.89 10*6/uL (4.10-5.20); RDW 12.6 % (11.5-14.5); WBC 11.28 10*3/uL (4.50-10.00)
--- NOTE | 2024-11-09 05:02 | ED ---
General Adult HPI - General Chief complaint: Abdominal Pain Stated complaint: Abd pain Time Seen by Provider: 11/09/24 04:22 Source: patient, EMS Mode of arrival: EMS Limitations: no limitations - History of Present Illness Initial comments: Dictation was produced using [employer] dictation software. please excuse any grammatical, word or spelling errors. Chief Complaint: 69-year-old female left-sided abdominal pain History of Present Illness: Patient 69-year-old female history of anal and uterine cancer presents to the ER for abdominal pain. Patient states she has a history of IBS and recent GI workup that was found to be unremarkable. Patient was instructed by oncologist to come to the ER should she have any recurrence of her symptoms. Denies any fever, chills or night sweats states the pain is localized to the left abdomen cramping in nature. Patient is a chronic describes his episodes as nausea vomiting followed by diarrhea episodes. The ROS documented in this emergency department record has been reviewed and confirmed by me. Those systems with pertinent positive or negative responses have been documented in the HPI. All other systems are other negative and/or noncontributory. - Related Data Home Medications Medication Instructions Recorded Confirmed ALPRAZolam [Xanax] 0.25 mg PO TID PRN 06/04/23 06/23/24 Cyanocobalamin (Vitamin B-12) 2,500 mcg PO DAILY 06/04/23 06/23/24 [Vitamin B-12] Dicyclomine [Bentyl] 20 mg PO BID 06/04/23 06/23/24 Diphenoxylate HCl/Atropine 2 tab PO BID 06/04/23 06/23/24 [Lomotil 2.5-0.025 mg Tablet] Pregabalin 25 mg PO TID PRN 06/04/23 06/23/24 Rosuvastatin [Crestor] 40 mg PO DAILY 06/04/23 06/23/24 Multivitamin [Multivitamins Adult 1 tab PO DAILY 04/06/24 06/23/24 Gummies] Previous Rx's Medication Instructions Recorded Ondansetron Odt [Zofran Odt] 4 mg PO Q8HR PRN #12 tab 11/09/24 Allergies Allergy/AdvReac Type Severity Reaction Status Date / Time azithromycin Allergy Rash/Hives Verified 06/23/24 17:24 [From Zithromax Z-Karlos] nitrofurantoin AdvReac Nausea & Verified 06/23/24 17:24 Vomiting sulfamethoxazole AdvReac Nausea & Verified 06/23/24 17:24 [From Bactrim] Vomiting trimethoprim [From Bactrim] AdvReac Nausea & Verified 06/23/24 17:24 Vomiting Review of Systems ROS Statement: Those systems with pertinent positive or pertinent negative responses have been documented in the HPI. ROS Other: All systems not noted in ROS Statement are negative. Past Medical History Past Medical History: Cancer, Hyperlipidemia Additional Past Medical History / Comment(s): IBS, HX ANAL CANCER, PEG TUBE REMAINS IN PLACE. Hx basal cell cancer on nose. hx uterine cancer 2017 History of Any Multi-Drug Resistant Organisms: None Reported Past Surgical History: Cholecystectomy, Hysterectomy Additional Past Surgical History / Comment(s): COLONOSCOPY, ANAL TUMOR REMOVED, PEG TUBE October 2009., hysterectomy 2018 Past Anesthesia/Blood Transfusion Reactions: No Reported Reaction Past Psychological History: No Psychological Hx Reported Smoking Status: Former smoker Past Alcohol Use History: Daily Past Drug Use History: None Reported - Past Family History Brother(s) Family Medical History: Cancer Additional Family Medical History / Comment(s): stomach- Sister(s) Family Medical History: Deep Vein Thrombosis (DVT) General Exam - General Exam Comments Initial Comments: PHYSICAL EXAM: General Impression: Alert and oriented x3, not in acute distress HEENT: Normocephalic atraumatic, extra-ocular movements intact, pupils equal and reactive to light bilaterally, mucous membranes moist. Cardiovascular: Heart regular rate and rhythm Chest: Able to complete full sentences, no retractions, no tachypnea Abdomen: abdomen soft, mild left abdominal tenderness, non-distended, no organomegaly Musculoskeletal: Pulses present and equal in all extremities, no peripheral edema Motor: no focal deficits noted Neurological: CN II-XII grossly intact, no focal motor or sensory deficits noted Skin: Intact with no visualized rashes Psych: Normal affect and mood Limitations: no limitations Course Vital Signs 11/09/24 04:21 Temperature 97.9 F Pulse Rate 77 Respiratory 18 Rate Blood Pressure 143/63 O2 Sat by Pulse 97 Oximetry EKG Findings - EKG Comments: EKG Findings:: My EKG interpretation: Ventricular rate 77, sinus rhythm, KY 172, QRS 113, QTc 432. No KY prolongation, no QTC prolongation, no ST or T-wave changes noted. Overall, this EKG is unremarkable Medical Decision Making - Medical Decision Making Was pt. sent in by a medical professional or institution (, PA, [employer], urgent care, hospital, or prison...) When possible be specific @ -No Did you speak to anyone other than the patient for history (EMS, parent, family, police, friend...)? What history was obtained from this source @ -No Did you review nursing and triage notes (agree or disagree)? Why? @ -I reviewed and agree with nursing and triage notes Were old charts reviewed (outside hosp., previous admission, EMS record, old EKG, old radiological studies, urgent care reports/EKG's, prison records)? Report findings @ -No old charts were reviewed Differential Diagnosis (chest pain, altered mental status, abdominal pain women, abdominal pain men, vaginal bleeding, musculoskeletal, weakness, fever, dyspnea, syncope, headache, dizziness, GI bleed, back pain, seizure, CVA, palpatations, mental health)? @ -Differential Abdominal Pain Women: Appendicitis, Cholecystitis, diverticulosis, ischemic bowel, pancreatitis, hepatitis, UTI, gastroenteritis, AAA, incarcerated hernia, bowel obstruction, constipation, inflammatory bowel, hepatitis, peptic ulcer disease, splenic infarction, perforated viscus, vulvitis, ovarian torsion, PID, kidney stone, placenta abruption, this is not meant to be an all-inclusive list EKG interpreted by me (3pts min.). @ -None done X-rays interpreted by me (1pt min.). @ -None done CT interpreted by me (1pt min.). @ -CT abdomen pelvis shows Complicated colitis versus diarrhea versus small bowel obstruction. There is also new mild right-sided hydronephrosis U/S interpreted by me (1pt. min.). @ -None done What testing was considered but not performed or refused? (CT, X-rays, U/S, labs)? Why? @ -None What meds were considered but not given or refused? Why? @ -None Was smoking cessation discussed for >3mins.? @ -No Were there social determinants of health that impacted care today? How? (Homelessness, low income, unemployed, alcoholism, drug addiction, t ransportation, low edu. Level, literacy, decrease access to med. care, halfway, rehab)? @ -No Was there de-escalation of care discussed even if they declined (Discuss DNR or withdrawal of care, Hospice)? DNR status @ -No What co-morbidities impacted this encounter? (DM, HTN, Smoking, COPD, CAD, Cance r, CVA, ARF, Chemo, Hep., AIDS, mental health diagnosis, sleep apnea, morbid obesity)? @ -History of anal and urine cancer Was patient admitted / discharged? Hospital course, mention meds given and r oute, prescriptions, significant lab abnormalities, going to OR and other pertinent info. @ -69-year-old well-appearing female presents emergency department with crampy abdominal pain she allegedly has history of IBS and completed treatment for uterine and anal cancer. Vital signs stable. Abdomen exam is nonsurgical. Labs unremarkable. CT shows colitis versus bowel obstruction versus enteritis. Patient reevaluated bedside at 6:53 AM found to be stable to condition. She states that symptoms usually include nausea with diarrhea. Patient well-appearing disposition option discussed patient agreeable discharge she is told that she has new hydronephrosis seen on CT. States that she will follow-up with her urologist. Patient advised to follow-up with GI specialist. Return precautions discussed Did you discuss the management of the patient with other professionals (professionals i.e. , PA, [employer], lab, RT, psych nurse, social sciences instructor, oracle engineer, teacher, sales promotion officer, high risk case manager)? Give summary @ -No Was critical care preformed (if so, how long)? @ -No Undiagnosed new problem with uncertain prognosis? @ -No Drug Therapy requiring intensive monitoring for toxicity (Heparin, Nitro, Insulin, Cardizem)? @ -No Were any procedures done? @ -No Diagnosis/symptom? Acute, or Chronic, or Acute on Chronic? Uncomplicated (without systemic symptoms) or Complicated (systemic symptoms)? @ -Abdominal pain Side effects of treatment? @ -No Exacerbation, Progression, or Severe Exacerbation? @ -No Poses a threat to life or bodily function? How? (Chest pain, [place], [place], pneumonia, PE, COPD, DKA, ARF, appy, cholecystitis, CVA, Diverticulitis, Homicidal, Suicidal, threat to staff... and all critical care pts) @ -yes - Lab Data Result diagrams: 11/09/24 04:40 11/09/24 04:40 Lab Results 11/09/24 11/09/24 11/09/24 Range/Units 04:40 04:40 04:40 WBC 11.28 H (4.50-10.00) 10*3/uL RBC 3.89 L (4.10-5.20) 10*6/uL Hgb 13.2 (12.0-15.0) g/dL Hct 38.6 (37.2-46.3) % MCV 99.2 H (80.0-97.0) fL MCH 33.9 H (27.0-32.0) pg MCHC 34.2 (32.0-37.0) g/dL Plt Count 205 (140-440) 10*3/uL MPV 8.3 L (9.5-12.2) fL Immature Gran % (Auto) 0.4 % Neutrophils % 81.5 % Lymphocytes % 8.2 % Monocytes % 8.2 % Eosinophils % 1.3 % Basophils % 0.4 % Immature Gran # 0.04 (0.00-0.04) 10*3/uL Neutrophils # 9.18 H (1.80-7.70) 10*3/uL Lymphocytes # 0.93 (0.90-5.00) 10*3/uL Monocytes # 0.93 (0.20-1.00) 10*3/uL Eosinophils # 0.15 (0.04-0.35) 10*3/uL Basophils # 0.05 (0.00-0.10) 10*3/uL Sodium 141 (137-145) mmol/L Potassium 3.9 (3.5-5.1) mmol/L Chloride 102 (98-107) mmol/L Carbon Dioxide 31 H (22-30) mmol/L Anion Gap 8 mmol/L BUN 14 (7-17) mg/dL Creatinine 0.53 (0.52-1.04) mg/dL Est GFR (CKD-EPI)AfAm >90 (>60 ml/min/1.73 sqM) Est GFR (CKD-EPI)NonAf >90 (>60 ml/min/1.73 sqM) Glucose 103 H (74-99) mg/dL Plasma Lactic Acid Chele 1.3 (0.7-2.0) mmol/L Calcium 9.7 (8.4-10.2) mg/dL Total Bilirubin 0.7 (0.2-1.3) mg/dL AST 30 (14-36) U/L ALT 31 (4-34) U/L Alkaline Phosphatase 79 (38-126) U/L Total Protein 6.8 (6.3-8.2) g/dL Albumin 4.2 (3.5-5.0) g/dL Lipase 81 (23-300) U/L Disposition Clinical Impression: Abdominal pain Disposition: HOME SELF-CARE Instructions (If sedation given, give patient instructions): Abdominal Pain (ED) Prescriptions: Ondansetron Odt [Zofran Odt] 4 mg PO Q8HR PRN #12 tab PRN Reason: Nausea Is patient prescribed a controlled substance at d/c from ED?: No Referrals: Sudarshan Kauffman MD [Primary Care Provider] - 1-2 days Zackery Irene MD [STAFF PHYSICIAN] - 1-2 days Sarah Jean MD [STAFF PHYSICIAN] - 1-2 days Time of Disposition: 06:54
[2024-11-09 05:08] LABS: ALT 31 U/L (4-34); AST 30 U/L (14-36); African American GFR (CKD) >90 (>60 ml/min/1.73 sqM); Albumin 4.2 g/dL (3.5-5.0); Alkaline Phosphatase 79 U/L (38-126); Anion Gap 8 mmol/L; Blood Urea Nitrogen 14 mg/dL (7-17); Calcium 9.7 mg/dL (8.4-10.2); Carbon Dioxide 31 mmol/L (22-30); Chloride 102 mmol/L (98-107); Glucose 103 mg/dL (74-99); Lipase 81 U/L (23-300); Non-African American GFR(CKD) >90 (>60 ml/min/1.73 sqM); Potassium 3.9 mmol/L (3.5-5.1); Sodium 141 mmol/L (137-145); Total Bilirubin 0.7 mg/dL (0.2-1.3); Total Protein 6.8 g/dL (6.3-8.2)
[2024-11-09] MEDS: ONDANSETRON 4 MG/2 ML VIAL IVP STA (06:00)
--- NOTE | 2024-11-09 06:41 | CT ---
EXAMINATION TYPE: CT abdomen pelvis w con DATE OF EXAM: 11/09/2024 COMPARISON: Prior CT March 14, 2024 CLINICAL INDICATION: Female, 69 years old with history of left abdominal pain, hx of cancer, , TECHNIQUE: CT scan of the abdomen and pelvis is performed with IV Contrast, patient injected with 100 mL of Isov ue 300., (none if empty) Oral contrast used: (none if empty) Automated exposure control for dose reduction was used. FINDINGS: LUNG BASES: No significant abnormality is appreciated. LIVER/GB: Cholecystectomy clips are redemonstrated. PANCREAS: No significant abnormality is seen. SPLEEN: No significant abnormality is seen. ADRENALS: No significant abnormality is seen. KIDNEYS: Symmetric cortical medullary uptake and excretion. New mild right-sided hydronephrosis witho ut hydroureter or obstructing ureteral calculus. BOWEL: Moderately distended fluid-filled stomach. Duodenal sweep is dilated. Nondilated proximal jeju nal loops in the left upper and midabdomen are seen. There are a few prominent fluid-filled small bow el loops in the lower abdomen measuring up to 2.7 cm in diameter. Distal ileal loops in the right low er quadrant and pelvis are not dilated. Fluid-filled proximal colon is abnormal finding. Some distal colonic diverticular present. No CT evidence for acute diverticulitis. UTERUS/ADNEXA: Uterus is surgically absent. LYMPH NODES: No greater than 1cm abdominal or pelvic lymph nodes are appreciated. OSSEOUS STRUCTURES: Levoconvex scoliosis centered at L3-L4 level is redemonstrated. [id number] e disc space narrowing with endplate sclerosis at the right L3-L4 level is redemonstrated. Some scler osis along the sacroiliac joints bilaterally is redemonstrated. OTHER: Small amount of free fluid in the pelvis posteriorly axial image 68. Mild peripheral calcified plaque of the aorta extends into branch vessels. IMPRESSION: 1. Overall nonspecific bowel gas pattern. Consider gastroparesis/gastric outlet obstruction. Cannot e xclude partial mid to distal small bowel obstruction. Fluid in the proximal colon could reflect produ ct of mild uncomplicated colitis and/or diarrhea. Correlate clinically. 2. New Mild right-sided hydronephrosis without hydroureter or obstructing ureteral calculus. 3. New small amount of free fluid in the pelvis. [facility], , 11/09/2024 6:38 AM
[2024-11-09 07:06] VITALS: BP 114/65; PULSE 78; TEMP 98.3
== END 2024-11-09 07:37 | disposition home or self-care (01) ==
LOC: EC 04:20
DX: N13.30 Unspecified hydronephrosis (principal); Z87.891 Personal history of nicotine dependence; Z88.2 Allergy status to sulfonamides
CPT/HCPCS: 36415; 93005; 80053; 83605; 83690; 85025; 74177; 99284; 96374; J2405; Q9967

== ENCOUNTER → 2024-12-29 | Outpatient (CLI) | payer MEDICARE ==
--- NOTE | 2024-12-29 14:11 | US ---
EXAMINATION TYPE: US venous doppler duplex LE LT DATE OF EXAM: 12/29/2024 2:00 PM COMPARISON: NONE CLINICAL INDICATION: Female, 69 years old with history of M79.89 OTHER SOFT TISSUE DISORDER; LLE Swel ling x 4 weeks, multiple long car rides over the last six weeks. Patient denies any other signs, symp toms, or relevant history TECHNIQUE: The lower extremity deep venous system is examined utilizing real time linear array sonog dot with graded compression, color doppler sonography, and spectral doppler. SIDE PERFORMED: Left FINDINGS: VESSELS IMAGED: Common Femoral Vein Deep Femoral Vein Greater Saphenous Vein * Femoral Vein Popliteal Vein Small Saphenous Vein * Proximal Calf Veins (* superficial vessels) Left Leg: Negative for DVT, Color Doppler imaging shows patency of the vessels. Spectral waveforms a re within normal limits. IMPRESSION: No evidence of deep vein thrombosis of the left lower extremity. [facility], , 12/29/2024 2:08 PM
== END | disposition home or self-care (01) ==
LOC: RADUSWWP 13:45
PROVIDERS: ATTEND Family Medicine
DX: M79.89 Other specified soft tissue disorders (principal)